=== PATIENT | female | born 1935 | race Caucasian/White ===

== ENCOUNTER 2016-11-15 11:55 | Inpatient (IN) | payer MEDICARE ==
[~2016-11-15] VITALS: Ht 165.1 cm; Wt 87.5 kg
[~2016-11-15 11:55] MED LIST: ACET325T9 PO; AMLO2.5T PO; ASPI-482 PO; ATOR10TA60 PO; BYSTOLIC10 MG PO; CHOL100013 PO; ESCITALOPRAM OX10 MG PO; LOSA50TA6 PO; MELO7.5T29 PO; OXYB5SYR2 PO; PANT40TA5 PO; TRAM50TA PO
--- NOTE | 2016-11-15 12:23 | PHYS DOC ---
Past Medical History Past Medical History: GERD, High Cholesterol, Hypertension, Stroke Past Surgical History: Appendectomy, Hip Replacement, Knee Replacement, Tonsillectomy Additional Past Surgical Histo: bilat knee and hip replacement Alcohol Use: None Drug Use: None Adult General Chief Complaint Chief Complaint: MECHANICAL FALL HPI HPI Patient is a 81 year old female who presents with followed in the apartment lobby. She is came back from [facility] and started feel lightheaded and extension are she was on the ground. She denies any loss of consciousness but is unsure about this. She complains about posterior head pain, neck pain, left hip pain. She states she has generalized body aches everywhere but this is what hurts the most. She is on a fentanyl patch for generalized bodyaches. 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 She states prior to this she felt completely normal but did feel like she got overheated coming from the heat into her building. Review of Systems Review of Systems Constitutional: Denies fever or chills [] Eyes: Denies change in visual acuity, redness, or eye pain [] HENT: Denies nasal congestion or sore throat [] Respiratory: Denies cough or shortness of breath [] Cardiovascular: No additional information not addressed in HPI [] GI: Denies abdominal pain, nausea, vomiting, bloody stools or diarrhea [] : Denies dysuria or hematuria [] Musculoskeletal: Positive for neck and left hip pain Integument: Denies rash or skin lesions [] Neurologic: Denies headache, focal weakness or sensory changes [] Endocrine: Denies polyuria or polydipsia [] Current Medications Current Medications Current Medications Medications (Trade) Dose Ordered Sig/Brice Start Time Stop Time Status Last Admin Dose Admin Fentanyl Citrate (Fentanyl 2ml Vial) 25 mcg PRN Q1HR PRN 11/15/16 15:30 11/16/16 15:29 Hydralazine HCl (Apresoline) 10 mg 1X ONCE 11/15/16 15:30 11/15/16 15:31 Ondansetron HCl (Zofran) 4 mg PRN Q8HRS PRN 11/15/16 15:30 11/16/16 15:29 Allergies Allergies Allergies Coded Allergies Type Severity Reaction Last Updated Verified Penicillins Allergy Severe rash 11/17/13 No Physical Exam Physical Exam Constitutional: Well developed, well nourished, no acute distress, non-toxic appearance. [] HENT: Normocephalic, atraumatic, bilateral external ears normal, oropharynx moist, no oral exudates, nose normal. [] Eyes: PERRLA, EOMI, conjunctiva normal, no discharge. [] Neck: Normal range of motion, no tenderness, supple, no stridor. [] Cardiovascular:Heart rate regular rhythm, no murmur [] Lungs & Thorax: Bilateral breath sounds clear to auscultation, tender to palpation under her left breast, no crepitus appreciated Abdomen: Bowel sounds normal, soft, no tenderness, no masses, no pulsatile masses. [] Skin: Warm, dry, no erythema, no rash. [] Back: No tenderness, no CVA tenderness. [] Extremities: Mild tender to palpation over bilateral hips, no crepitus noted, no cyanosis, no clubbing, ROM intact, no edema. [] Neurologic: Alert and oriented X 3, normal motor function, normal sensory function, no focal deficits noted. [] Psychologic: Affect normal, judgement normal, mood normal. [] Current Patient Data Vital Signs Vital Signs Date Time Temp Pulse Resp B/P (MAP) Pulse Ox O2 Delivery O2 Flow Rate FiO2 11/15/16 14:55 64 20 203/101 (135) Room Air 11/15/16 13:50 97 11/15/16 11:55 97.5 97.5 Lab Values Laboratory Tests Test 11/15/16 12:50 11/15/16 14:35 White Blood Count 5.8 x10^3/uL (4.0-11.0) Red Blood Count 3.96 x10^6/uL (3.50-5.40) Hemoglobin 11.8 g/dL (12.0-15.5) L Hematocrit 35.4 % (36.0-47.0) L Mean Corpuscular Volume 89 fL (79-100) Mean Corpuscular Hemoglobin 30 pg (25-35) Mean Corpuscular Hemoglobin Concent 33 g/dL (31-37) Red Cell Distribution Width 12.6 % (11.5-14.5) Platelet Count 198 x10^3/uL (140-400) Neutrophils (%) (Auto) 77 % (31-73) H Lymphocytes (%) (Auto) 15 % (24-48) L Monocytes (%) (Auto) 6 % (0-9) Eosinophils (%) (Auto) 1 % (0-3) Basophils (%) (Auto) 1 % (0-3) Neutrophils # (Auto) 4.5 x10^3uL (1.8-7.7) Lymphocytes # (Auto) 0.9 x10^3/uL (1.0-4.8) L Monocytes # (Auto) 0.4 x10^3/uL (0.0-1.1) Eosinophils # (Auto) 0.1 x10^3/uL (0.0-0.7) Basophils # (Auto) 0.0 x10^3/uL (0.0-0.2) Prothrombin Time 13.4 SEC (11.7-14.0) Prothrombin Time INR 1.1 (0.8-1.1) Sodium Level 142 mmol/L (136-145) Potassium Level 4.1 mmol/L (3.5-5.1) Chloride Level 104 mmol/L (98-107) Carbon Dioxide Level 29 mmol/L (21-32) Anion Gap 9 (6-14) Blood Urea Nitrogen 14 mg/dL (7-20) Creatinine 1.2 mg/dL (0.6-1.0) H Estimated GFR (Cockcroft-Gault) 43.3 Glucose Level 105 mg/dL (70-99) H Calcium Level 9.4 mg/dL (8.5-10.1) Magnesium Level 2.0 mg/dL (1.8-2.4) Total Bilirubin 0.6 mg/dL (0.2-1.0) Direct Bilirubin 0.1 mg/dL (0.0-0.2) Aspartate Amino Transferase (AST) 18 U/L (15-37) Alanine Aminotransferase (ALT) 11 U/L (14-59) L Alkaline Phosphatase 102 U/L (46-116) Creatine Kinase 92 U/L (26-192) Creatine Kinase MB (Mass) 1.5 ng/mL (0.0-3.6) Creatine Kinase MB Relative Index 1.6 % (0-4) Troponin I Quantitative < 0.017 ng/mL (0.000-0.055) EP-Iyi-C-Type Natriuretic Peptide 700 pg/mL (0-449) H Total Protein 6.3 g/dL (6.4-8.2) L Albumin 3.7 g/dL (3.4-5.0) Thyroid Stimulating Hormone (TSH) 0.101 uIU/mL (0.358-3.74) L Urine Color Yellow Urine Clarity Clear Urine pH 6.5 Urine Specific [place] 1.010 Urine Protein Negative mg/dL (NEG-TRACE) Urine Glucose (UA) Negative mg/dL (NEG) Urine Ketones (Stick) Negative mg/dL (NEG) Urine Blood Negative (NEG) Urine Nitrite Positive (NEG) Urine Bilirubin Negative (NEG) Urine Urobilinogen Dipstick 0.2 mg/dL (0.2 mg/dL) Urine Leukocyte Esterase Small (NEG) Urine RBC 0 /HPF (0-2) Urine WBC 5-10 /HPF (0-4) Urine Squamous Epithelial Cells Occ /LPF Urine Transitional Epithelial Cells Occ /LPF Urine Bacteria Many /HPF (0-FEW) Laboratory Tests 11/15/16 12:50 Laboratory Tests 11/15/16 12:50 EKG EKG EKG shows sinus rhythm rate [address] elevations appreciated or T- wave inversions, left axis deviation, QTC 408 ms, as interpreted by me. Radiology/Procedures Radiology/Procedures [facility] [address] [place], [place] [id number] IMAGING REPORT Signed PATIENT: ATILIO DAY ACCOUNT: [id number] : 1935 LOCATION: ER AGE: 81 SEX: F EXAM STATUS: PRE ER ORD. PHYSICIAN: REYNA WANG MD REASON: presyncope, fall with headache and neck pain PROCEDURE: CT HEAD AND CERVICAL SPINE WO Indication near syncope . Fall. Head injury. Neck pain. Noncontrast images of the head were obtained. Cervical spine was also evaluated. Images of the cervical spine were reformatted in the coronal and sagittal planes. Note is made of a previous examination of the head 01/31/2016. CT head: Findings No acute calvarial finding is seen. The visualized paranasal sinuses appear unremarkable. There is no subdural or epidural hematoma. There is some underlying atrophy. No mass or midline shift is seen. Acute finding is not apparent. There is no evidence of hemorrhage. CT cervical spine: Findings. The lung apices are clear. A significant soft tissue finding in the neck is not seen. There are probable thyroid nodules. These are likely incidental but could be further evaluated with ultrasound if clinically warranted. Review of axial images demonstrates degenerative changes. Uncovertebral degenerative change is seen as well as facet degenerative change. Best demonstrated on the reformatted images is some disc space narrowing at C5-6 and C6-7. Acute finding is not seen. IMPRESSION: Degenerative changes in the cervical spine. No acute finding seen. Chronic changes in the head. No acute finding seen PQRS Compliance Statement: One or more of the following individualized dose reduction techniques were utilized for this examination: 1. Automated exposure control 2. Adjustment of the mA and/or kV according to patient size 3. Use of iterative reconstruction technique DICTATED and SIGNED BY: TIFFANY VILA MD DATE: 11/15/16 1317 CC: REYNA WANG MD; AISHWARYA TAVERAS MD ~ [place] [id number] IMAGING REPORT Signed PATIENT: ATILIO DAY ACCOUNT: [id number] : 1935 LOCATION: ER AGE: 81 SEX: F EXAM STATUS: REG ER ORD. PHYSICIAN: REYNA WANG MD REASON: presyncope PROCEDURE: PORTABLE CHEST 1V Indication syncope. Pain in the left ribs. A single view of the chest was obtained and is compared to an examination 11/17/2013. Slightly tortuous thoracic aorta is noted. An acute parenchymal infiltrate is not seen. Significant pleural fluid is not present. There is no pneumothorax. There are degenerative changes around the left shoulder. IMPRESSION: No acute finding apparent in the chest DICTATED and SIGNED BY: TIFFANY VILA MD DATE: 11/15/16 1340 CC: REYNA WANG MD; AISHWARYA TAVERAS MD ~ [address] [id number] IMAGING REPORT Signed PATIENT: ATILIO DAY ACCOUNT: [id number] : 1935 LOCATION: ER AGE: 81 SEX: F EXAM [id number] STATUS: REG ER ORD. PHYSICIAN: REYNA WANG MD REASON: hip pain PROCEDURE: HIP LEFT 2 VIEW; HIP RIGHT 2V WITH PELVIS EXAM: 1. Frontal pelvis with 2V right hip. 2. Left hip 2 views. HISTORY: Syncope, bilateral hip pain. COMPARISON: 08/03/2015. FINDINGS: There are changes of bilateral total hip arthroplasty. The right acetabular component is 6 x 2 screws and the femoral component is uncemented. The left acetabular component is fixed by 3 screws. The femoral component is fixed by cerclage wires. There is some heterotopic ossification posterior to the proximal metaphysis. This is stable. No, dictation is appreciated bilaterally. Osteopenia appears moderate. No pelvic fractures seen. Sacroiliac osteoarthritis is mild on the left. There is moderate to severe lower lumbar degenerative disc disease. IMPRESSION: 1. Bilateral total hip arthroplasties in expected alignment. 2. Moderate osteopenia. 3. Mild left sacroiliac osteoarthritis. 4. Moderate to severe lower lumbar degenerative disc disease. DICTATED and SIGNED BY: CHRISTI MICHEL MD DATE: 11/15/16 1401 CC: REYNA WANG MD; AISHWARYA TAVERAS MD ~ Impressions: Left rib contusions Left hip pain Accelerated hypertension Presyncope Course & Med Decision Making Course & Med Decision Making Pertinent Labs and Imaging studies reviewed. (See chart for details) CT head neck chest x-ray bilateral hip x-rays negative. Patient blood pressures to 225 systolic, IV hydralazine ordered. Patient's being admitted for presyncopal episode. Family is agreeable plan patient's in stable condition at this time. Interim orders have been written. Dragon Disclaimer Dragon Disclaimer This electronic medical record was generated, in whole or in part, using a voice recognition dictation system. Departure Departure Impression: Primary Impression: Syncope Disposition: ADMITTED INPATIENT Admitting Physician: Lurdes Lozoya Condition: IMPROVED Referrals: AISHWARYA TAVERAS MD (PCP) Problem Qualifiers Primary Impression: Syncope Syncope type: unspecified Qualified Codes: R55 - Syncope and collapse REYNA WANG MD Nov 15, 2016 12:22
[2016-11-15 12:58] LABS: BASO % 1 % (0-3); EOS % 1 % (0-3); HEMATOCRIT 35.4 % (36.0-47.0); HEMOGLOBIN 11.8 g/dL (12.0-15.5); LYMPH # 0.9 x10^3/uL (1.0-4.8); LYMPH % 15 % (24-48); MEAN CORPUSCULAR HEMOGLOBIN 30 pg (25-35); MEAN CORPUSCULAR HGB CONC 33 g/dL (31-37); MEAN CORPUSCULAR VOLUME 89 fL (79-100); MONO % 6 % (0-9); NEUT % 77 % (31-73); PLATELET COUNT 198 x10^3/uL (140-400); RED BLOOD COUNT 3.96 x10^6/uL (3.50-5.40); RED CELL DISTRIBUTION WIDTH 12.6 % (11.5-14.5); WHITE BLOOD COUNT 5.8 x10^3/uL (4.0-11.0)
[2016-11-15 13:08] LABS: INR 1.1 (0.8-1.1); PROTHROMBIN TIME PATIENT 13.4 SEC (11.7-14.0)
[2016-11-15 13:11] LABS: CALCIUM 9.4 mg/dL (8.5-10.1); CREATININE 1.2 mg/dL (0.6-1.0); GFR 43.3; POTASSIUM 4.1 mmol/L (3.5-5.1)
--- NOTE | 2016-11-15 13:15 | EKG ---
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
[2016-11-15 13:20] LABS: ALBUMIN 3.7 g/dL (3.4-5.0); DIRECT BILIRUBIN 0.1 mg/dL (0.0-0.2); TOTAL BILIRUBIN 0.6 mg/dL (0.2-1.0); TOTAL PROTEIN 6.3 g/dL (6.4-8.2)
[2016-11-15 13:25] LABS: CKMB MASS 1.5 ng/mL (0.0-3.6)
--- NOTE | 2016-11-15 13:29 | RAD ---
Indication near syncope . Fall. Head injury. Neck pain. Noncontrast images of the head were obtained. Cervical spine was also evaluated. Images of the cervical spine were reformatted in the coronal and sagittal planes. Note is made of a previous examination of the head 01/31/2016. CT head: Findings No acute calvarial finding is seen. The visualized paranasal sinuses appear unremarkable. There is no subdural or epidural hematoma. There is some underlying atrophy. No mass or midline shift is seen. Acute finding is not apparent. There is no evidence of hemorrhage. CT cervical spine: Findings. The lung apices are clear. A significant soft tissue finding in the neck is not seen. There are probable thyroid nodules. These are likely incidental but could be further evaluated with ultrasound if clinically warranted. Review of axial images demonstrates degenerative changes. Uncovertebral degenerative change is seen as well as facet degenerative change. Best demonstrated on the reformatted images is some disc space narrowing at C5-6 and C6-7. Acute finding is not seen. IMPRESSION: Degenerative changes in the cervical spine. No acute finding seen. Chronic changes in the head. No acute finding seen PQRS Compliance Statement: One or more of the following individualized dose reduction techniques were utilized for this examination: 1. Automated exposure control 2. Adjustment of the mA and/or kV according to patient size 3. Use of iterative reconstruction technique
[2016-11-15] MEDS: fentaNYL PF VIAL 100 MCG/2 ML VIAL IV PRN ×3 (13:50→20:53)
--- NOTE | 2016-11-15 13:55 | RAD ---
Indication syncope. Pain in the left ribs. A single view of the chest was obtained and is compared to an examination 11/17/2013. Slightly tortuous thoracic aorta is noted. An acute parenchymal infiltrate is not seen. Significant pleural fluid is not present. There is no pneumothorax. There are degenerative changes around the left shoulder. IMPRESSION: No acute finding apparent in the chest
--- NOTE | 2016-11-15 14:07 | RAD ---
EXAM: 1. Frontal pelvis with 2V right hip. 2. Left hip 2 views. HISTORY: Syncope, bilateral hip pain. COMPARISON: 08/03/2015. FINDINGS: There are changes of bilateral total hip arthroplasty. The right acetabular component is 6 x 2 screws and the femoral component is uncemented. The left acetabular component is fixed by 3 screws. The femoral component is fixed by cerclage wires. There is some heterotopic ossification posterior to the proximal metaphysis. This is stable. No, dictation is appreciated bilaterally. Osteopenia appears moderate. No pelvic fractures seen. Sacroiliac osteoarthritis is mild on the left. There is moderate to severe lower lumbar degenerative disc disease. IMPRESSION: 1. Bilateral total hip arthroplasties in expected alignment. 2. Moderate osteopenia. 3. Mild left sacroiliac osteoarthritis. 4. Moderate to severe lower lumbar degenerative disc disease.
[2016-11-15 14:46] LABS: BILIRUBIN,URINE NEGATIVE (NEG); GLUCOSE,URINE NEGATIVE (NEG); NITRITE,URINE POSITIVE (NEG); PH,URINE 6.5; PROTEIN,URINE NEGATIVE (NEG-TRACE); UROBILINOGEN,URINE 0.2 mg/dL (0.2 mg/dL)
[2016-11-15 14:56] LABS: BACTERIA,URINE MANY /HPF (0-FEW); RBC,URINE 0 /HPF (0-2); SQUAMOUS EPITHELIAL CELL,UR OCC /LPF
[2016-11-15] MEDS ORDERED: fentaNYL PF VIAL 100 MCG/2 ML VIAL IV PRN (15:30)
[2016-11-15] MEDS ORDERED: hydrALAZINE 20 MG/ML VIAL. IVP ONE (15:30)
[2016-11-15] MEDS ORDERED: ONDANSETRON PF 4 MG/2 ML VIAL. IV PRN (15:30)
--- NOTE | 2016-11-15 16:09 | PDOC1 ---
History and Physical Date of Admission Date of Admission DATE: 11/15/16 TIME: 16:02 Identification/Chief Complaint Chief Complaint fall, pain Problems: Source Source: Chart review, Patient History of Present Illness History of Present Illness Ms. Shelton is a 81 year old female admit after a fall. She was lightheaded does not remember much, denies loss of consciousness, but may be deflecting the question,. She complains about rib pain on left, neck pain, left hip pain. Takes fentanyl patch at baseline family is worried that EMS warned then about "heart blockage" maybe noticing wide QRS she has had mult prior stress tests, never a cardiac cath feels OK now, seems a little confused Past Medical History Cardiovascular: HTN, Hyperlipidemia GI: GERD Psych: Depression Musculoskeletal: low back pain Endocrine: No pertinent hx Dermatology: No pertinent hx Past Surgical History Past Surgical History: Appendectomy, Total hip replacement, Total knee replacement Family History Family History: No Significant, Other Social History Smoke: No ALCOHOL: none Drugs: None Current Problem List Problem List Problems Medical Problems: (1) Syncope Status: Acute Problems: Current Medications Current Medications Current Medications Fentanyl Citrate (Fentanyl 2ml Vial) 25 mcg PRN Q15MIN PRN IV PAIN GREATER THAN 3/10 Last administered on 11/15/16t 13:50; Start 11/15/16 at 13:45; Stop at 13:44 Ondansetron HCl (Zofran) 4 mg PRN Q8HRS PRN IV NAUSEA/VOMITING; Start 11/15/16 at 15:30; Stop 11/16/16 at 15:29 Fentanyl Citrate (Fentanyl 2ml Vial) 25 mcg PRN Q1HR PRN IV PAIN; Start at 15:30; Stop 11/16/16 at 15:29 Hydralazine HCl (Apresoline) 10 mg 1X ONCE IVP Last administered on 11/15/16t 15:27; Start 11/15/16 at 15:30; Stop 11/15/16 at 15:31; Status DC Active Scripts Active Reported Tylenol (Acetaminophen) 325 Mg Tablet 1,000 Mg PO Escitalopram Oxalate 10 Mg Tablet 1 Tab PO DAILY Amlodipine Besylate 2.5 Mg Tablet 2.5 Mg PO HS Losartan Potassium 50 Mg Tablet 50 Mg PO 1X Vitamin D (Cholecalciferol (Vitamin D3)) 1,000 Unit Capsule 1,000 Unit PO Aspir 81 (Aspirin) 81 Mg Tablet.dr 81 Mg PO Pantoprazole Sodium 40 Mg Tablet.dr 40 Mg PO 1X Meloxicam 7.5 Mg Tablet 7.5 Mg PO DAILY Bystolic (Nebivolol) 10 Mg Tablet 10 Mg PO Allergies Allergies: Coded Allergies: Penicillins (Unverified Allergy, Severe, rash, 11/17/13) fosphenytoin (Verified Allergy, Intermediate, 11/15/16) ROS General: YES: Fatigue, No: Chills, Night Sweats, Appetite, Other PSYCHOLOGICAL ROS: No: Anxiety, Behavioral Disorder, Concentration difficultie , Decreased libido, Depression, Disorientation, Hallucinations, Hostility, Irritablity, Memory difficulties, Mood Swings, Obsessive thoughts, Physical abuse, Sexual abuse, Sleep disturbances, Suicidal ideation, Other Eyes: No Blurry vision, No Decreased vision, No Double vision, No Dry eyes, No Excessive tearing, No Eye Pain, No Itchy Eyes, No Loss of vision, No Photophobia , No Scotomata, No Uses contacts, No Uses glasses, No Other HEENT: No: Heacaches, Visual Changes, Hearing change, Nasal congestion, Nasal discharge, Oral lesions, Sinus pain, Sore Throat, Epistaxis, Sneezing, Snoring, Tinnitus, Vertigo, Vocal changes, Other Hematological and Lymphatic: No: Bleeding Problems, Blood Clots, Blood Transfusions, Brusing, Night Sweats, Pallor, Swollen Lymph Nodes, Other Cardiovascular: No Chest Pain, No Palpitations, No Orthopnea, No Paroxysmal Noc. Dyspnea, No Edema, No Lt Headedness, No Other Gastrointestinal: No Vomiting, No Abdominal Pain, No Diarrhea, No Constipation , No Melena, No Hematochezia, No Other Genitourinary: No Dysuria, No Frequency, No Incontinence, No Hematuria, No Retention, No Discharge, No Urgency, No Pain, No Flank Pain, No Other, No , No , No , No , No , No , No Musculoskeletal: Yes Joint Pain, Yes Joint Stiffness, Yes Muscle Pain Neurological: No Behavorial Changes, No Bowel/Bladder ControlChng, No Confusion , No Dizziness, No Gait Disturbance, No Headaches, No Impaired Coord/balance, No Memory Loss, No Numbness/Tingling, No Seizures, No Speech Problems, No Tremors, No Visual Changes, No Weakness, No Other Skin: Yes Dry Skin, No Eczema, No Hair Changes, No Lumps, No Mole Changes, No Mottling, No Nail Changes, No Pruritus, No Rash, No Skin Lesion Changes, No Other, No Acne Physical Exam General: Alert, Oriented X3, Cooperative, No acute distress HEENT: Atraumatic, EOMI, Other (op appears dry) Lungs: Clear to auscultation, Normal air movement Heart: no gallops, no murmurs Extremities: No edema Skin: No breakdown, No significant lesion Vitals Vitals Vital Signs Date Time Temp Pulse Resp B/P (MAP) Pulse Ox O2 Delivery O2 Flow Rate FiO2 11/15/16 15:27 62 203/97 11/15/16 14:55 20 Room Air 11/15/16 13:50 97 11/15/16 11:55 97.5 97.5 Labs Labs Laboratory Tests Test 11/15/16 12:50 11/15/16 14:35 White Blood Count 5.8 x10^3/uL (4.0-11.0) Red Blood Count 3.96 x10^6/uL (3.50-5.40) Hemoglobin 11.8 g/dL (12.0-15.5) Hematocrit 35.4 % (36.0-47.0) Mean Corpuscular Volume 89 fL (79-100) Mean Corpuscular Hemoglobin 30 pg (25-35) Mean Corpuscular Hemoglobin Concent 33 g/dL (31-37) Red Cell Distribution Width 12.6 % (11.5-14.5) Platelet Count 198 x10^3/uL (140-400) Neutrophils (%) (Auto) 77 % (31-73) Lymphocytes (%) (Auto) 15 % (24-48) Monocytes (%) (Auto) 6 % (0-9) Eosinophils (%) (Auto) 1 % (0-3) Basophils (%) (Auto) 1 % (0-3) Neutrophils # (Auto) 4.5 x10^3uL (1.8-7.7) Lymphocytes # (Auto) 0.9 x10^3/uL (1.0-4.8) Monocytes # (Auto) 0.4 x10^3/uL (0.0-1.1) Eosinophils # (Auto) 0.1 x10^3/uL (0.0-0.7) Basophils # (Auto) 0.0 x10^3/uL (0.0-0.2) Prothrombin Time 13.4 SEC (11.7-14.0) Prothromb Time International Ratio 1.1 (0.8-1.1) Sodium Level 142 mmol/L (136-145) Potassium Level 4.1 mmol/L (3.5-5.1) Chloride Level 104 mmol/L (98-107) Carbon Dioxide Level 29 mmol/L (21-32) Anion Gap 9 (6-14) Blood Urea Nitrogen 14 mg/dL (7-20) Creatinine 1.2 mg/dL (0.6-1.0) Estimated GFR (Cockcroft-Gault) 43.3 Glucose Level 105 mg/dL (70-99) Calcium Level 9.4 mg/dL (8.5-10.1) Magnesium Level 2.0 mg/dL (1.8-2.4) Total Bilirubin 0.6 mg/dL (0.2-1.0) Direct Bilirubin 0.1 mg/dL (0.0-0.2) Aspartate Amino Transf (AST/SGOT) 18 U/L (15-37) Alanine Aminotransferase (ALT/SGPT) 11 U/L (14-59) Alkaline Phosphatase 102 U/L (46-116) Creatine Kinase 92 U/L (26-192) Creatine Kinase MB (Mass) 1.5 ng/mL (0.0-3.6) Creatine Kinase MB Relative Index 1.6 % (0-4) Troponin I Quantitative < 0.017 ng/mL (0.000-0.055) LI-Irr-E-Type Natriuretic Peptide 700 pg/mL (0-449) Total Protein 6.3 g/dL (6.4-8.2) Albumin 3.7 g/dL (3.4-5.0) Thyroid Stimulating Hormone (TSH) 0.101 uIU/mL (0.358-3.74) Urine Color Yellow Urine Clarity Clear Urine pH 6.5 Urine Specific [place] 1.010 Urine Protein Negative mg/dL (NEG-TRACE) Urine Glucose (UA) Negative mg/dL (NEG) Urine Ketones (Stick) Negative mg/dL (NEG) Urine Blood Negative (NEG) Urine Nitrite Positive (NEG) Urine Bilirubin Negative (NEG) Urine Urobilinogen Dipstick 0.2 mg/dL (0.2 mg/dL) Urine Leukocyte Esterase Small (NEG) Urine RBC 0 /HPF (0-2) Urine WBC 5-10 /HPF (0-4) Urine Squamous Epithelial Cells Occ /LPF Urine Transitional Epithelial Cells Occ /LPF Urine Bacteria Many /HPF (0-FEW) Laboratory Tests Test 11/15/16 12:50 11/15/16 14:35 White Blood Count 5.8 x10^3/uL (4.0-11.0) Red Blood Count 3.96 x10^6/uL (3.50-5.40) Hemoglobin 11.8 g/dL (12.0-15.5) Hematocrit 35.4 % (36.0-47.0) Mean Corpuscular Volume 89 fL (79-100) Mean Corpuscular Hemoglobin 30 pg (25-35) Mean Corpuscular Hemoglobin Concent 33 g/dL (31-37) Red Cell Distribution Width 12.6 % (11.5-14.5) Platelet Count 198 x10^3/uL (140-400) Neutrophils (%) (Auto) 77 % (31-73) Lymphocytes (%) (Auto) 15 % (24-48) Monocytes (%) (Auto) 6 % (0-9) Eosinophils (%) (Auto) 1 % (0-3) Basophils (%) (Auto) 1 % (0-3) Neutrophils # (Auto) 4.5 x10^3uL (1.8-7.7) Lymphocytes # (Auto) 0.9 x10^3/uL (1.0-4.8) Monocytes # (Auto) 0.4 x10^3/uL (0.0-1.1) Eosinophils # (Auto) 0.1 x10^3/uL (0.0-0.7) Basophils # (Auto) 0.0 x10^3/uL (0.0-0.2) Prothrombin Time 13.4 SEC (11.7-14.0) Prothromb Time International Ratio 1.1 (0.8-1.1) Sodium Level 142 mmol/L (136-145) Potassium Level 4.1 mmol/L (3.5-5.1) Chloride Level 104 mmol/L (98-107) Carbon Dioxide Level 29 mmol/L (21-32) Anion Gap 9 (6-14) Blood Urea Nitrogen 14 mg/dL (7-20) Creatinine 1.2 mg/dL (0.6-1.0) Estimated GFR (Cockcroft-Gault) 43.3 Glucose Level 105 mg/dL (70-99) Calcium Level 9.4 mg/dL (8.5-10.1) Magnesium Level 2.0 mg/dL (1.8-2.4) Total Bilirubin 0.6 mg/dL (0.2-1.0) Direct Bilirubin 0.1 mg/dL (0.0-0.2) Aspartate Amino Transf (AST/SGOT) 18 U/L (15-37) Alanine Aminotransferase (ALT/SGPT) 11 U/L (14-59) Alkaline Phosphatase 102 U/L (46-116) Creatine Kinase 92 U/L (26-192) Creatine Kinase MB (Mass) 1.5 ng/mL (0.0-3.6) Creatine Kinase MB Relative Index 1.6 % (0-4) Troponin I Quantitative < 0.017 ng/mL (0.000-0.055) JT-Tvb-O-Type Natriuretic Peptide 700 pg/mL (0-449) Total Protein 6.3 g/dL (6.4-8.2) Albumin 3.7 g/dL (3.4-5.0) Thyroid Stimulating Hormone (TSH) 0.101 uIU/mL (0.358-3.74) Urine Color Yellow Urine Clarity Clear Urine pH 6.5 Urine Specific [place] 1.010 Urine Protein Negative mg/dL (NEG-TRACE) Urine Glucose (UA) Negative mg/dL (NEG) Urine Ketones (Stick) Negative mg/dL (NEG) Urine Blood Negative (NEG) Urine Nitrite Positive (NEG) Urine Bilirubin Negative (NEG) Urine Urobilinogen Dipstick 0.2 mg/dL (0.2 mg/dL) Urine Leukocyte Esterase Small (NEG) Urine RBC 0 /HPF (0-2) Urine WBC 5-10 /HPF (0-4) Urine Squamous Epithelial Cells Occ /LPF Urine Transitional Epithelial Cells Occ /LPF Urine Bacteria Many /HPF (0-FEW) VTE Prophylaxis Ordered VTE Prophylaxis Devices: No VTE Pharmacological Prophylaxi: Yes Assessment/Plan Assessment/Plan fall syncope vs. presyncope consult CV UTI dehydration, on CKD 3 some weakness obesity BMI 32 CAROLINA SANCHEZ MD Nov 15, 2016 16:09
--- NOTE | 2016-11-15 16:15 | ACF ---
Admit Criteria Forms Admit Criteria Forms Admit Criteria Forms HYPERTENSION Clinical Indications for Admission to Inpatient Care ( Place "X" for any and all applicable criteria): Admission is indicated for 1 or more of the following(1)(2)(3)(4)(5)(6)(7)(8)(9) (10): [ ]I. Hypertensive emergency, with evidence of acute and progressing target organ disease as indicated by 1 or more of the following: [ ]a) Hypertensive encephalopathy (eg, confusion, altered mental status) [ ]b) Cerebral infarction [ ]c) Intracranial hemorrhage [ ]d) Myocardial ischemia or infarction [ ]e) Heart failure (eg. Pulmonary edema) [ ]f) Aortic dissection [ ]g) Increased creatinine (new) with reduction of more than 50% in estimated glomerular filtration rate from baseline [ ]h) Seizure [ ]i) Papilledema [ ]j) Retinal hemorrhage [ ]k) Microangiopathic hemolytic anemia [ ]l) Other significant finding secondary to hypertension [ ]II. Adrenergic or sympathomimetic crisis (eg, severe hypertension due to pheochromocytoma crisis, cocaine or amphetamine intoxication, or clonidine withdrawal) [X ]III. Severe hypertension (SBP greater than 180 mmHg or DBP greater than 110 mmHg or greater than the 95th percentile for age, gender, and height in pediatric patients) that cannot be controlled (eg, to SBP less than 160 mmHg and DBP less than 100 mmHg in adults) by treatment with oral medication in emergency department or observation care Extended stay beyond goal length of stay may be needed for(11)(12)(13): [ ]a) Persistent hypertensive encephalopathy [ ]b) Continuation of pulmonary edema [ ]c) Recurring or persistent severe hypertension [ ]d) Target organ damage (eg, angina, stroke, aortic dissection) The original [employer] content created by [employer] has been revised. The portions of the content which have been revised are identified through the use of italic text, and [employer] has neither reviewed nor approved the modified material. All other unmodified content is copyright [employer]. Please see references footnoted in the original [employer] edition 2014 EMELY PANTOJA Nov 15, 2016 16:15
[2016-11-15] MEDS ORDERED: amLODIPine BESYLATE 5 MG TABLET PO ONE (16:30)
[2016-11-15 17:30] VITALS: BP 164/72
[2016-11-15] MEDS ORDERED: CYAN10005 PO (17:37)
[2016-11-15] MEDS ORDERED: ATOR20TA58 PO (17:37)
[2016-11-15] MEDS ORDERED: FENT1PAT15 TP (17:37)
[2016-11-15] MEDS ORDERED: CLOP75TA PO (17:37)
[2016-11-15] MEDS ORDERED: DIPH50CA PO (18:32)
[2016-11-15 19:00] VITALS: BP 120/48
[2016-11-15] MEDS: ENOXAPARIN 40 MG/0.4 ML SYRINGE. SQ SCH (20:51)
[2016-11-15] MEDS: ACETAMINOPHEN 325 MG TABLET. PO SCH (20:51)
[2016-11-15] MEDS ORDERED: amLODIPine BESYLATE 2.5 MG TABLET PO SCH (21:00)
[2016-11-15 22:50] VITALS: BP 146/67
[2016-11-15 22:51] VITALS: BP 139/76
[2016-11-15 22:52] VITALS: BP 107/62
[2016-11-15] MEDS: diphenhydrAMINE HCL 25 MG CAPSULE PO PRN (23:07)
[2016-11-16 03:00] VITALS: BP 169/72
[2016-11-16 05:22] LABS: BASO % 1 % (0-3); EOS % 1 % (0-3); HEMATOCRIT 35.8 % (36.0-47.0); HEMOGLOBIN 11.8 g/dL (12.0-15.5); LYMPH # 1.7 x10^3/uL (1.0-4.8); LYMPH % 20 % (24-48); MEAN CORPUSCULAR HEMOGLOBIN 30 pg (25-35); MEAN CORPUSCULAR HGB CONC 33 g/dL (31-37); MEAN CORPUSCULAR VOLUME 90 fL (79-100); MONO % 7 % (0-9); NEUT % 72 % (31-73); PLATELET COUNT 239 x10^3/uL (140-400); RED BLOOD COUNT 3.99 x10^6/uL (3.50-5.40); WHITE BLOOD COUNT 8.6 x10^3/uL (4.0-11.0)
[2016-11-16 05:43] LABS: CHOLESTEROL/HDL RATIO 2.6
[2016-11-16 05:44] LABS: CALCIUM 8.9 mg/dL (8.5-10.1); CREATININE 1.3 mg/dL (0.6-1.0); GFR 39.5; POTASSIUM 3.8 mmol/L (3.5-5.1)
[2016-11-16] MEDS: ACETAMINOPHEN 325 MG TABLET. PO SCH ×3 (06:08→21:00)
[2016-11-16] MEDS: fentaNYL PF VIAL 100 MCG/2 ML VIAL IV PRN (06:10)
[2016-11-16 07:00] VITALS: BP 172/61
[2016-11-16] MEDS: LOSARTAN POTASSIUM 50 MG TABLET. PO SCH (08:42)
[2016-11-16] MEDS: ASPIRIN ENTERIC COATED 81 MG TABLET.DR. PO SCH (08:42)
[2016-11-16] MEDS: MELOXICAM 7.5 MG TABLET PO SCH (08:43)
[2016-11-16] MEDS: PANTOPRAZOLE 40 MG TABLET.DR. PO SCH (08:44)
[2016-11-16 10:49] VITALS: BP_SYST 114; BP_SYST 149; BP_SYST 155; BP_DIAS 59; BP_DIAS 61; BP_DIAS 77
--- NOTE | 2016-11-16 11:09 | PDOC ---
PROGRESS NOTES Chief Complaint Chief Complaint fall syncope UTI dehydration, on CKD 3 some weakness and debility obesity BMI 32 History of Present Illness History of Present Illness walk with cane, start PT and OT rocephin for UTI, cx pending on tele, 24 hours would go until after 8pm tonight, plan DC in AM if oK Vitals Vitals Vital Signs Date Time Temp Pulse Resp B/P (MAP) Pulse Ox O2 Delivery O2 Flow Rate FiO2 11/16/16 10:49 96.4 71 16 155/59 (91) 96 Room Air 96.4 149/77 (101) 114/61 (78) Physical Exam General: Alert, Oriented X3, Cooperative, No acute distress Heart: Regular rate, No murmurs Lungs: Wheezing Abdomen: No tenderness Extremities: No edema Skin: No breakdown, No significant lesion Labs LABS Laboratory Tests Test 11/15/16 12:50 11/15/16 14:35 11/15/16 21:30 11/16/16 04:45 White Blood Count 5.8 x10^3/uL (4.0-11.0) 8.6 x10^3/uL (4.0-11.0) Red Blood Count 3.96 x10^6/uL (3.50-5.40) 3.99 x10^6/uL (3.50-5.40) Hemoglobin 11.8 g/dL (12.0-15.5) 11.8 g/dL (12.0-15.5) Hematocrit 35.4 % (36.0-47.0) 35.8 % (36.0-47.0) Mean Corpuscular Volume 89 fL (79-100) 90 fL (79-100) Mean Corpuscular Hemoglobin 30 pg (25-35) 30 pg (25-35) Mean Corpuscular Hemoglobin Concent 33 g/dL (31-37) 33 g/dL (31-37) Red Cell Distribution Width 12.6 % (11.5-14.5) 13.0 % (11.5-14.5) Platelet Count 198 x10^3/uL (140-400) 239 x10^3/uL (140-400) Neutrophils (%) (Auto) 77 % (31-73) 72 % (31-73) Lymphocytes (%) (Auto) 15 % (24-48) 20 % (24-48) Monocytes (%) (Auto) 6 % (0-9) 7 % (0-9) Eosinophils (%) (Auto) 1 % (0-3) 1 % (0-3) Basophils (%) (Auto) 1 % (0-3) 1 % (0-3) Neutrophils # (Auto) 4.5 x10^3uL (1.8-7.7) 6.1 x10^3uL (1.8-7.7) Lymphocytes # (Auto) 0.9 x10^3/uL (1.0-4.8) 1.7 x10^3/uL (1.0-4.8) Monocytes # (Auto) 0.4 x10^3/uL (0.0-1.1) 0.6 x10^3/uL (0.0-1.1) Eosinophils # (Auto) 0.1 x10^3/uL (0.0-0.7) 0.1 x10^3/uL (0.0-0.7) Basophils # (Auto) 0.0 x10^3/uL (0.0-0.2) 0.0 x10^3/uL (0.0-0.2) Prothrombin Time 13.4 SEC (11.7-14.0) Prothromb Time International Ratio 1.1 (0.8-1.1) Sodium Level 142 mmol/L (136-145) 142 mmol/L (136-145) Potassium Level 4.1 mmol/L (3.5-5.1) 3.8 mmol/L (3.5-5.1) Chloride Level 104 mmol/L (98-107) 103 mmol/L (98-107) Carbon Dioxide Level 29 mmol/L (21-32) 28 mmol/L (21-32) Anion Gap 9 (6-14) 11 (6-14) Blood Urea Nitrogen 14 mg/dL (7-20) 19 mg/dL (7-20) Creatinine 1.2 mg/dL (0.6-1.0) 1.3 mg/dL (0.6-1.0) Estimated GFR (Cockcroft-Gault) 43.3 39.5 Glucose Level 105 mg/dL (70-99) 64 mg/dL (70-99) Calcium Level 9.4 mg/dL (8.5-10.1) 8.9 mg/dL (8.5-10.1) Magnesium Level 2.0 mg/dL (1.8-2.4) Total Bilirubin 0.6 mg/dL (0.2-1.0) Direct Bilirubin 0.1 mg/dL (0.0-0.2) Aspartate Amino Transf (AST/SGOT) 18 U/L (15-37) Alanine Aminotransferase (ALT/SGPT) 11 U/L (14-59) Alkaline Phosphatase 102 U/L (46-116) Creatine Kinase 92 U/L (26-192) Creatine Kinase MB (Mass) 1.5 ng/mL (0.0-3.6) Creatine Kinase MB Relative Index 1.6 % (0-4) Troponin I Quantitative < 0.017 ng/mL (0.000-0.055) < 0.017 ng/mL (0.000-0.055) < 0.017 ng/mL (0.000-0.055) RV-[id number]-Type Natriuretic Peptide 700 pg/mL (0-449) Total Protein 6.3 g/dL (6.4-8.2) Albumin 3.7 g/dL (3.4-5.0) Thyroid Stimulating Hormone (TSH) 0.101 uIU/mL (0.358-3.74) Urine Color Yellow Urine Clarity Clear Urine pH 6.5 Urine Specific [place] 1.010 Urine Protein Negative mg/dL (NEG-TRACE) Urine Glucose (UA) Negative mg/dL (NEG) Urine Ketones (Stick) Negative mg/dL (NEG) Urine Blood Negative (NEG) Urine Nitrite Positive (NEG) Urine Bilirubin Negative (NEG) Urine Urobilinogen Dipstick 0.2 mg/dL (0.2 mg/dL) Urine Leukocyte Esterase Small (NEG) Urine RBC 0 /HPF (0-2) Urine WBC 5-10 /HPF (0-4) Urine Squamous Epithelial Cells Occ /LPF Urine Transitional Epithelial Cells Occ /LPF Urine Bacteria Many /HPF (0-FEW) Triglycerides Level 110 mg/dL (0-150) Cholesterol Level 148 mg/dL (0-200) LDL Cholesterol, Calculated 70 mg/dL (0-100) VLDL Cholesterol, Calculated 22 mg/dL (0-40) Non-HDL Cholesterol Calculated 92 mg/dL (0-129) HDL Cholesterol 56 mg/dL (40-60) Cholesterol/HDL Ratio 2.6 Review of Systems Review of Systems feels better no complaint Assessment and Plan Assessmemt and Plan Problems Medical Problems: (1) Syncope Status: Acute Problems: Comment Review of Relevant I have reviewed the following items britt (where applicable) has been applied. Labs Laboratory Tests Test 11/15/16 12:50 11/15/16 14:35 11/15/16 21:30 11/16/16 04:45 White Blood Count 5.8 x10^3/uL (4.0-11.0) 8.6 x10^3/uL (4.0-11.0) Red Blood Count 3.96 x10^6/uL (3.50-5.40) 3.99 x10^6/uL (3.50-5.40) Hemoglobin 11.8 g/dL (12.0-15.5) 11.8 g/dL (12.0-15.5) Hematocrit 35.4 % (36.0-47.0) 35.8 % (36.0-47.0) Mean Corpuscular Volume 89 fL (79-100) 90 fL (79-100) Mean Corpuscular Hemoglobin 30 pg (25-35) 30 pg (25-35) Mean Corpuscular Hemoglobin Concent 33 g/dL (31-37) 33 g/dL (31-37) Red Cell Distribution Width 12.6 % (11.5-14.5) 13.0 % (11.5-14.5) Platelet Count 198 x10^3/uL (140-400) 239 x10^3/uL (140-400) Neutrophils (%) (Auto) 77 % (31-73) 72 % (31-73) Lymphocytes (%) (Auto) 15 % (24-48) 20 % (24-48) Monocytes (%) (Auto) 6 % (0-9) 7 % (0-9) Eosinophils (%) (Auto) 1 % (0-3) 1 % (0-3) Basophils (%) (Auto) 1 % (0-3) 1 % (0-3) Neutrophils # (Auto) 4.5 x10^3uL (1.8-7.7) 6.1 x10^3uL (1.8-7.7) Lymphocytes # (Auto) 0.9 x10^3/uL (1.0-4.8) 1.7 x10^3/uL (1.0-4.8) Monocytes # (Auto) 0.4 x10^3/uL (0.0-1.1) 0.6 x10^3/uL (0.0-1.1) Eosinophils # (Auto) 0.1 x10^3/uL (0.0-0.7) 0.1 x10^3/uL (0.0-0.7) Basophils # (Auto) 0.0 x10^3/uL (0.0-0.2) 0.0 x10^3/uL (0.0-0.2) Prothrombin Time 13.4 SEC (11.7-14.0) Prothromb Time International Ratio 1.1 (0.8-1.1) Sodium Level 142 mmol/L (136-145) 142 mmol/L (136-145) Potassium Level 4.1 mmol/L (3.5-5.1) 3.8 mmol/L (3.5-5.1) Chloride Level 104 mmol/L (98-107) 103 mmol/L (98-107) Carbon Dioxide Level 29 mmol/L (21-32) 28 mmol/L (21-32) Anion Gap 9 (6-14) 11 (6-14) Blood Urea Nitrogen 14 mg/dL (7-20) 19 mg/dL (7-20) Creatinine 1.2 mg/dL (0.6-1.0) 1.3 mg/dL (0.6-1.0) Estimated GFR (Cockcroft-Gault) 43.3 39.5 Glucose Level 105 mg/dL (70-99) 64 mg/dL (70-99) Calcium Level 9.4 mg/dL (8.5-10.1) 8.9 mg/dL (8.5-10.1) Magnesium Level 2.0 mg/dL (1.8-2.4) Total Bilirubin 0.6 mg/dL (0.2-1.0) Direct Bilirubin 0.1 mg/dL (0.0-0.2) Aspartate Amino Transf (AST/SGOT) 18 U/L (15-37) Alanine Aminotransferase (ALT/SGPT) 11 U/L (14-59) Alkaline Phosphatase 102 U/L (46-116) Creatine Kinase 92 U/L (26-192) Creatine Kinase MB (Mass) 1.5 ng/mL (0.0-3.6) Creatine Kinase MB Relative Index 1.6 % (0-4) Troponin I Quantitative < 0.017 ng/mL (0.000-0.055) < 0.017 ng/mL (0.000-0.055) < 0.017 ng/mL (0.000-0.055) [id number]-M-Type Natriuretic Peptide 700 pg/mL (0-449) Total Protein 6.3 g/dL (6.4-8.2) Albumin 3.7 g/dL (3.4-5.0) Thyroid Stimulating Hormone (TSH) 0.101 uIU/mL (0.358-3.74) Urine Color Yellow Urine Clarity Clear Urine pH 6.5 Urine Specific [place] 1.010 Urine Protein Negative mg/dL (NEG-TRACE) Urine Glucose (UA) Negative mg/dL (NEG) Urine Ketones (Stick) Negative mg/dL (NEG) Urine Blood Negative (NEG) Urine Nitrite Positive (NEG) Urine Bilirubin Negative (NEG) Urine Urobilinogen Dipstick 0.2 mg/dL (0.2 mg/dL) Urine Leukocyte Esterase Small (NEG) Urine RBC 0 /HPF (0-2) Urine WBC 5-10 /HPF (0-4) Urine Squamous Epithelial Cells Occ /LPF Urine Transitional Epithelial Cells Occ /LPF Urine Bacteria Many /HPF (0-FEW) Triglycerides Level 110 mg/dL (0-150) Cholesterol Level 148 mg/dL (0-200) LDL Cholesterol, Calculated 70 mg/dL (0-100) VLDL Cholesterol, Calculated 22 mg/dL (0-40) Non-HDL Cholesterol Calculated 92 mg/dL (0-129) HDL Cholesterol 56 mg/dL (40-60) Cholesterol/HDL Ratio 2.6 Laboratory Tests Test 11/15/16 12:50 11/15/16 14:35 11/15/16 21:30 11/16/16 04:45 White Blood Count 5.8 x10^3/uL (4.0-11.0) 8.6 x10^3/uL (4.0-11.0) Red Blood Count 3.96 x10^6/uL (3.50-5.40) 3.99 x10^6/uL (3.50-5.40) Hemoglobin 11.8 g/dL (12.0-15.5) 11.8 g/dL (12.0-15.5) Hematocrit 35.4 % (36.0-47.0) 35.8 % (36.0-47.0) Mean Corpuscular Volume 89 fL (79-100) 90 fL (79-100) Mean Corpuscular Hemoglobin 30 pg (25-35) 30 pg (25-35) Mean Corpuscular Hemoglobin Concent 33 g/dL (31-37) 33 g/dL (31-37) Red Cell Distribution Width 12.6 % (11.5-14.5) 13.0 % (11.5-14.5) Platelet Count 198 x10^3/uL (140-400) 239 x10^3/uL (140-400) Neutrophils (%) (Auto) 77 % (31-73) 72 % (31-73) Lymphocytes (%) (Auto) 15 % (24-48) 20 % (24-48) Monocytes (%) (Auto) 6 % (0-9) 7 % (0-9) Eosinophils (%) (Auto) 1 % (0-3) 1 % (0-3) Basophils (%) (Auto) 1 % (0-3) 1 % (0-3) Neutrophils # (Auto) 4.5 x10^3uL (1.8-7.7) 6.1 x10^3uL (1.8-7.7) Lymphocytes # (Auto) 0.9 x10^3/uL (1.0-4.8) 1.7 x10^3/uL (1.0-4.8) Monocytes # (Auto) 0.4 x10^3/uL (0.0-1.1) 0.6 x10^3/uL (0.0-1.1) Eosinophils # (Auto) 0.1 x10^3/uL (0.0-0.7) 0.1 x10^3/uL (0.0-0.7) Basophils # (Auto) 0.0 x10^3/uL (0.0-0.2) 0.0 x10^3/uL (0.0-0.2) Prothrombin Time 13.4 SEC (11.7-14.0) Prothromb Time International Ratio 1.1 (0.8-1.1) Sodium Level 142 mmol/L (136-145) 142 mmol/L (136-145) Potassium Level 4.1 mmol/L (3.5-5.1) 3.8 mmol/L (3.5-5.1) Chloride Level 104 mmol/L (98-107) 103 mmol/L (98-107) Carbon Dioxide Level 29 mmol/L (21-32) 28 mmol/L (21-32) Anion Gap 9 (6-14) 11 (6-14) Blood Urea Nitrogen 14 mg/dL (7-20) 19 mg/dL (7-20) Creatinine 1.2 mg/dL (0.6-1.0) 1.3 mg/dL (0.6-1.0) Estimated GFR (Cockcroft-Gault) 43.3 39.5 Glucose Level 105 mg/dL (70-99) 64 mg/dL (70-99) Calcium Level 9.4 mg/dL (8.5-10.1) 8.9 mg/dL (8.5-10.1) Magnesium Level 2.0 mg/dL (1.8-2.4) Total Bilirubin 0.6 mg/dL (0.2-1.0) Direct Bilirubin 0.1 mg/dL (0.0-0.2) Aspartate Amino Transf (AST/SGOT) 18 U/L (15-37) Alanine Aminotransferase (ALT/SGPT) 11 U/L (14-59) Alkaline Phosphatase 102 U/L (46-116) Creatine Kinase 92 U/L (26-192) Creatine Kinase MB (Mass) 1.5 ng/mL (0.0-3.6) Creatine Kinase MB Relative Index 1.6 % (0-4) Troponin I Quantitative < 0.017 ng/mL (0.000-0.055) < 0.017 ng/mL (0.000-0.055) < 0.017 ng/mL (0.000-0.055) DD-Qii-R-Type Natriuretic Peptide 700 pg/mL (0-449) Total Protein 6.3 g/dL (6.4-8.2) Albumin 3.7 g/dL (3.4-5.0) Thyroid Stimulating Hormone (TSH) 0.101 uIU/mL (0.358-3.74) Urine Color Yellow Urine Clarity Clear Urine pH 6.5 Urine Specific [place] 1.010 Urine Protein Negative mg/dL (NEG-TRACE) Urine Glucose (UA) Negative mg/dL (NEG) Urine Ketones (Stick) Negative mg/dL (NEG) Urine Blood Negative (NEG) Urine Nitrite Positive (NEG) Urine Bilirubin Negative (NEG) Urine Urobilinogen Dipstick 0.2 mg/dL (0.2 mg/dL) Urine Leukocyte Esterase Small (NEG) Urine RBC 0 /HPF (0-2) Urine WBC 5-10 /HPF (0-4) Urine Squamous Epithelial Cells Occ /LPF Urine Transitional Epithelial Cells Occ /LPF Urine Bacteria Many /HPF (0-FEW) Triglycerides Level 110 mg/dL (0-150) Cholesterol Level 148 mg/dL (0-200) LDL Cholesterol, Calculated 70 mg/dL (0-100) VLDL Cholesterol, Calculated 22 mg/dL (0-40) Non-HDL Cholesterol Calculated 92 mg/dL (0-129) HDL Cholesterol 56 mg/dL (40-60) Cholesterol/HDL Ratio 2.6 Medications Current Medications Fentanyl Citrate (Fentanyl 2ml Vial) 25 mcg PRN Q15MIN PRN IV PAIN GREATER THAN 3/10 Last administered on 11/16/16t 06:10; Start 11/15/16 at 13:45; Stop at 13:44 Ondansetron HCl (Zofran) 4 mg PRN Q8HRS PRN IV NAUSEA/VOMITING; Start 11/15/16 at 15:30; Stop 11/16/16 at 15:29 Fentanyl Citrate (Fentanyl 2ml Vial) 25 mcg PRN Q1HR PRN IV PAIN; Start at 15:30; Stop 11/16/16 at 15:29 Hydralazine HCl (Apresoline) 10 mg 1X ONCE IVP Last administered on 11/15/16t 15:27; Start 11/15/16 at 15:30; Stop 11/15/16 at 15:31; Status DC Acetaminophen (Tylenol) 650 mg Q8HRS PO Last administered on 11/16/16 06:08; Start 11/15/16 at 22:00 Amlodipine Besylate (Norvasc) 2.5 mg HS PO ; Start 11/15/16 at 21:00 Aspirin (Ecotrin) 81 mg DAILY PO Last administered on 11/16/16 08:42; Start at 09:00 Losartan Potassium (Cozaar) 50 mg DAILY PO Last administered on 11/16/16 08:42 ; Start 11/16/16 at 09:00 Meloxicam (Mobic) 7.5 mg DAILY PO Last administered on 11/16/16 08:43; Start 11/16/16 at 09:00 Pantoprazole Sodium (Protonix) 40 mg DAILY PO Last administered on 11/16/16 08 :44; Start 11/16/16 at 09:00 Escitalopram Oxalate (Lexapro) 10 mg DAILY PO ; Start 11/16/16 at 09:00 Amlodipine Besylate (Norvasc) 5 mg 1X ONCE PO ; Start 11/15/16 at 16:30; Stop 11/15/16 at 16:31; Status DC Enoxaparin Sodium (Lovenox Per Pharmacy Prophylaxis Dosing) 1 each PRN DAILY PRN MC SEE COMMENTS; Start 11/15/16 at 16:15; Status UNV Enoxaparin Sodium (Lovenox 40mg Syringe) 40 mg Q24H SQ Last administered on 20:51; Start 11/15/16 at 20:00 Diphenhydramine HCl (Benadryl) 25 mg PRN DAILY PRN PO ITCHING Last administered on 11/15/16 23:07; Start 11/15/16 at 22:00 Ceftriaxone Sodium 1 gm/ Sodium Chloride 50 ml @ 100 mls/hr Q24H IV ; Start at 11:00; Status UNV Active Scripts Active Reported Diphenhydramine Hcl 50 Mg Capsule 1 Cap PO PRN QHS PRN FENTANYL 25mcg/hr (Fentanyl) 1 Each Patch.td72 1 Patch TP Q3DAYS Vitamin B-12 (Cyanocobalamin (Vitamin B-12)) 1,000 Mcg Tablet 1 Tab PO DAILY Atorvastatin Calcium 20 Mg Tablet 1 Tab PO HS Clopidogrel (Clopidogrel Bisulfate) 75 Mg Tablet 1 Tab PO DAILY Tylenol (Acetaminophen) 325 Mg Tablet 1,000 Mg PO PRN Q6HRS PRN Escitalopram Oxalate 10 Mg Tablet 1 Tab PO DAILY Vitamin D (Cholecalciferol (Vitamin D3)) 1,000 Unit Capsule 1,000 Unit PO HS Aspir 81 (Aspirin) 81 Mg Tablet.dr 81 Mg PO HS Pantoprazole Sodium 40 Mg Tablet.dr 40 Mg PO DAILY Meloxicam 7.5 Mg Tablet 7.5 Mg PO BID Bystolic (Nebivolol) 10 Mg Tablet 5 Mg PO DAILY Vitals/I & O Vital Sign - Last 24 Hours 11/15/16 11/15/16 11/15/16 11/15/16 11:55 12:26 13:50 14:55 Temp 97.5 97.5 Pulse 65 64 64 Resp 18 31 20 20 B/P (MAP) 193/95 (127) 162/81 (108) 203/101 (135) Pulse Ox 100 98 97 O2 Delivery Room Air Room Air Room Air Room Air 11/15/16 11/15/16 11/15/16 11/15/16 15:27 15:35 16:06 16:40 Pulse 62 62 70 70 Resp 16 29 16 B/P (MAP) 203/97 194/84 (120) 218/85 (129) 175/67 (103) Pulse Ox 97 100 99 O2 Delivery Room Air Room Air Room Air 11/15/16 11/15/16 11/15/16 11/15/16 16:55 17:30 17:30 19:00 Temp 96.6 97.7 96.6 97.7 Pulse 70 73 Resp 16 19 18 B/P (MAP) 164/72 (102) 120/48 (72) Pulse Ox 99 97 94 O2 Delivery Room Air Room Air Room Air 11/15/16 11/15/16 11/15/16 11/15/16 20:00 20:53 21:45 22:50 Temp 97.9 97.9 Pulse 64 Resp 18 18 18 B/P (MAP) 146/67 (93) Pulse Ox 97 95 O2 Delivery Room Air Room Air Room Air 11/15/16 11/15/16 11/16/16 11/16/16 22:51 22:52 03:00 06:10 Temp 97.7 97.7 Pulse 68 Resp 18 18 B/P (MAP) 139/76 (97) 107/62 (77) 169/72 (104) Pulse Ox 94 94 O2 Delivery Room Air Room Air 11/16/16 11/16/16 11/16/16 11/16/16 07:00 07:07 08:00 08:42 Temp 96.6 96.6 Pulse 62 62 Resp 18 B/P (MAP) 172/61 (98) 172/61 Pulse Ox 98 94 O2 Delivery Room Air Room Air Room Air 11/16/16 10:49 Temp 96.4 96.4 Pulse 71 Resp 16 B/P (MAP) 155/59 (91) 149/77 (101) 114/61 (78) Pulse Ox 96 O2 Delivery Room Air Intake and Output 11/15/16 11/15/16 11/16/16 15:00 23:00 07:00 Intake Total 250 ml Balance 250 ml CAROLINA SANCHEZ MD Nov 16, 2016 11:09
[2016-11-16] MEDS: ESCITALOPRAM 10 MG TABLET. PO SCH (11:23)
[2016-11-16] MEDS ORDERED: diphenhydrAMINE HCL 25 MG CAPSULE PO PRN (11:30)
[2016-11-16] MEDS ORDERED: METOPROLOL TART IMMED RELEASE 25 MG TABLET. PO SCH (12:00)
[2016-11-16] MEDS ORDERED: fentaNYL 25MCG/HR PATCH 1 PATCH PATCH.TD72 TD SCH (12:00)
--- NOTE | 2016-11-16 12:05 | PDOC2 ---
[facility] [employer] 11/16/16 1205: CARDIAC CONSULT DATE OF CONSULT Date of Consult DATE: 11/16/16 TIME: 12:00 REASON FOR CONSULT Reason for Consult: Hypertension Syncope REFERRING PHYSICIAN Referring Physician: Dr. Lozoya SOURCE Source: Chart review, Patient HISTORY OF PRESENT ILLNESS HISTORY OF PRESENT ILLNESS This is a 81 yo female who presented secondary to fall. Patient was out shopping yesterday. Got off the bus to go home. Waking into the office of the housing facility and suddenly got dizzy and felling backwards. Does not think she passed out, but unsure. Denies any chest pain, palpitations, diaphoresis, or nausea/vomiting. Has "dizzy spells" sometimes (has not occurred recently). BP usually low when this happens. BP significantly elevated upon arrival; forgot to take routine home medications yesterday morning. PAST MEDICAL HISTORY Cardiovascular: HTN, Hyperlipidemia Pulmonary: No pertinent hx CENTRAL NERVOUS SYSTEM: CVA, Other (forgetful) GI: GERD Heme/Onc: No pertinent hx Hepatobiliary: No pertinent hx Psych: No pertinent hx Musculoskeletal: low back pain, Osteoarthritis Rheumatologic: No pertinent hx Infectious disease: No pertinent hx ENT: No pertinent hx Renal/: No pertinent hx Endocrine: Hypothyroidism Dermatology: No pertinent hx PAST SURGICAL HISTORY Past Surgical History: Total hip replacement (left ), Total knee replacement ( right ), Tubal Ligation, Other (thyroid cyst ) FAMILY HISTORY Family History: Cancer SOCIAL HISTORY Smoke: No ALCOHOL: none Drugs: None Lives: Alone CURRENT MEDICATIONS CURRENT MEDICATIONS Current Medications Medications (Trade) Dose Ordered Sig/Brice Route PRN Reason Start Time Stop Time Status Last Admin Dose Admin Fentanyl Citrate (Fentanyl 2ml Vial) 25 mcg PRN Q15MIN PRN IV PAIN GREATER THAN 3/10 11/15/16 13:45 11/16/16 13:44 11/16/16 06:10 Hydralazine HCl (Apresoline) 10 mg 1X ONCE IVP 11/15/16 15:30 11/15/16 15:31 DC 11/15/16 15:27 Acetaminophen (Tylenol) 650 mg Q8HRS PO 11/15/16 22:00 11/16/16 06:08 Aspirin (Ecotrin) 81 mg DAILY PO 11/16/16 09:00 11/16/16 08:42 Losartan Potassium (Cozaar) 50 mg DAILY PO 11/16/16 09:00 11/16/16 08:42 Meloxicam (Mobic) 7.5 mg DAILY PO 11/16/16 09:00 11/16/16 08:43 Pantoprazole Sodium (Protonix) 40 mg DAILY PO 11/16/16 09:00 11/16/16 08:44 Escitalopram Oxalate (Lexapro) 10 mg DAILY PO 11/16/16 09:00 11/16/16 11:23 Enoxaparin Sodium (Lovenox 40mg Syringe) 40 mg Q24H SQ 11/15/16 20:00 11/15/16 20:51 Diphenhydramine HCl (Benadryl) 25 mg PRN DAILY PRN PO ITCHING 11/15/16 22:00 11/15/16 23:07 ALLERGIES ALLERGIES: Coded Allergies: Penicillins (Unverified Allergy, Severe, rash, 11/17/13) fosphenytoin (Verified Allergy, Intermediate, 11/15/16) ROS Review of System 14 point ROS conducted with pertinent positives note above in HPI. PHYSICAL EXAM General: Alert, Oriented X3, Cooperative, No acute distress, Other (forgetful) HEENT: Atraumatic, Mucous membr. moist/pink Lungs: Clear to auscultation, Normal air movement Heart: Regular rate, Normal S1, Normal S2, No murmurs Abdomen: Soft, No tenderness Extremities: Normal pulses, Other (trace bilateral LE edema ) Skin: No significant lesion Neuro: Normal speech, Sensation intact Psych/Mental Status: Mental status NL, Mood NL MUSCULOSKELETAL: Osteoarthritic changes both hands VITALS VITALS Vital Signs Date Time Temp Pulse Resp B/P (MAP) Pulse Ox O2 Delivery O2 Flow Rate FiO2 11/16/16 10:49 96.4 71 16 155/59 (91) 96 Room Air 96.4 149/77 (101) 114/61 (78) LABS Lab: Laboratory Tests Test 11/15/16 12:50 11/15/16 14:35 11/15/16 21:30 11/16/16 04:45 White Blood Count 5.8 x10^3/uL (4.0-11.0) 8.6 x10^3/uL (4.0-11.0) Red Blood Count 3.96 x10^6/uL (3.50-5.40) 3.99 x10^6/uL (3.50-5.40) Hemoglobin 11.8 g/dL (12.0-15.5) 11.8 g/dL (12.0-15.5) Hematocrit 35.4 % (36.0-47.0) 35.8 % (36.0-47.0) Mean Corpuscular Volume 89 fL (79-100) 90 fL (79-100) Mean Corpuscular Hemoglobin 30 pg (25-35) 30 pg (25-35) Mean Corpuscular Hemoglobin Concent 33 g/dL (31-37) 33 g/dL (31-37) Red Cell Distribution Width 12.6 % (11.5-14.5) 13.0 % (11.5-14.5) Platelet Count 198 x10^3/uL (140-400) 239 x10^3/uL (140-400) Neutrophils (%) (Auto) 77 % (31-73) 72 % (31-73) Lymphocytes (%) (Auto) 15 % (24-48) 20 % (24-48) Monocytes (%) (Auto) 6 % (0-9) 7 % (0-9) Eosinophils (%) (Auto) 1 % (0-3) 1 % (0-3) Basophils (%) (Auto) 1 % (0-3) 1 % (0-3) Neutrophils # (Auto) 4.5 x10^3uL (1.8-7.7) 6.1 x10^3uL (1.8-7.7) Lymphocytes # (Auto) 0.9 x10^3/uL (1.0-4.8) 1.7 x10^3/uL (1.0-4.8) Monocytes # (Auto) 0.4 x10^3/uL (0.0-1.1) 0.6 x10^3/uL (0.0-1.1) Eosinophils # (Auto) 0.1 x10^3/uL (0.0-0.7) 0.1 x10^3/uL (0.0-0.7) Basophils # (Auto) 0.0 x10^3/uL (0.0-0.2) 0.0 x10^3/uL (0.0-0.2) Prothrombin Time 13.4 SEC (11.7-14.0) Prothromb Time International Ratio 1.1 (0.8-1.1) Sodium Level 142 mmol/L (136-145) 142 mmol/L (136-145) Potassium Level 4.1 mmol/L (3.5-5.1) 3.8 mmol/L (3.5-5.1) Chloride Level 104 mmol/L (98-107) 103 mmol/L (98-107) Carbon Dioxide Level 29 mmol/L (21-32) 28 mmol/L (21-32) Anion Gap 9 (6-14) 11 (6-14) Blood Urea Nitrogen 14 mg/dL (7-20) 19 mg/dL (7-20) Creatinine 1.2 mg/dL (0.6-1.0) 1.3 mg/dL (0.6-1.0) Estimated GFR (Cockcroft-Gault) 43.3 39.5 Glucose Level 105 mg/dL (70-99) 64 mg/dL (70-99) Calcium Level 9.4 mg/dL (8.5-10.1) 8.9 mg/dL (8.5-10.1) Magnesium Level 2.0 mg/dL (1.8-2.4) Total Bilirubin 0.6 mg/dL (0.2-1.0) Direct Bilirubin 0.1 mg/dL (0.0-0.2) Aspartate Amino Transf (AST/SGOT) 18 U/L (15-37) Alanine Aminotransferase (ALT/SGPT) 11 U/L (14-59) Alkaline Phosphatase 102 U/L (46-116) Creatine Kinase 92 U/L (26-192) Creatine Kinase MB (Mass) 1.5 ng/mL (0.0-3.6) Creatine Kinase MB Relative Index 1.6 % (0-4) Troponin I Quantitative < 0.017 ng/mL (0.000-0.055) < 0.017 ng/mL (0.000-0.055) < 0.017 ng/mL (0.000-0.055) JI-Xrp-[id number]-Type Natriuretic Peptide 700 pg/mL (0-449) Total Protein 6.3 g/dL (6.4-8.2) Albumin 3.7 g/dL (3.4-5.0) Thyroid Stimulating Hormone (TSH) 0.101 uIU/mL (0.358-3.74) Urine Color Yellow Urine Clarity Clear Urine pH 6.5 Urine Specific [place] 1.010 Urine Protein Negative mg/dL (NEG-TRACE) Urine Glucose (UA) Negative mg/dL (NEG) Urine Ketones (Stick) Negative mg/dL (NEG) Urine Blood Negative (NEG) Urine Nitrite Positive (NEG) Urine Bilirubin Negative (NEG) Urine Urobilinogen Dipstick 0.2 mg/dL (0.2 mg/dL) Urine Leukocyte Esterase Small (NEG) Urine RBC 0 /HPF (0-2) Urine WBC 5-10 /HPF (0-4) Urine Squamous Epithelial Cells Occ /LPF Urine Transitional Epithelial Cells Occ /LPF Urine Bacteria Many /HPF (0-FEW) Triglycerides Level 110 mg/dL (0-150) Cholesterol Level 148 mg/dL (0-200) LDL Cholesterol, Calculated 70 mg/dL (0-100) VLDL Cholesterol, Calculated 22 mg/dL (0-40) Non-HDL Cholesterol Calculated 92 mg/dL (0-129) HDL Cholesterol 56 mg/dL (40-60) Cholesterol/HDL Ratio 2.6 ECHOCARDIOGRAM ECHOCARDIOGRAM <Conclusion> Technically difficult study. Valves not well visualized. Left ventricle systolic function is normal. The Ejection Fraction is 55-60%. There is normal LV segmental wall motion. Transmitral Doppler flow pattern is Grade I-abnormal relaxation pattern. Trace aortic regurgitation. Trace tricuspid valve regurgitation. There is no evidence of significant pericardial effusion. DATE: 01/31/16 1640 ASSESSMENT/PLAN ASSESSMENT/PLAN 1. Syncope; echo 03/14 with preserved LV function. No significant valvular insufficiency 2. Accelerated hypertension; secondary to med noncompliance. now improved. 3. Hyperlipidemia; lipids on goal. continue statin therapy 4. Hypothyroidism: TSH 0.101 5. H/o CVA; on ASA and Plavix 6. UTI; IV antibiotics initiated per PCP Recommendations Monitor telemetry Check echo to assess LV function Check orthostatic HR and BP. If above unrevealing, consider event monitor upon discharge Problems: HARJINDER ROJAS MD 11/16/16 2115: CARDIAC CONSULT ALLERGIES ALLERGIES: Coded Allergies: Penicillins (Unverified Allergy, Severe, rash, 11/17/13) fosphenytoin (Verified Allergy, Intermediate, 11/15/16) ASSESSMENT/PLAN ASSESSMENT/PLAN Patient seen and examined. Agree with BELL SPINNER SOUSAPHONES's assessment and plan. Tele did not show any arrhythmias so far. 2D echo showed EF 50-55% without any significant structural abnormalities. BP better controlled since admission. Plan out patient event monitor to rule out arrhythmic etiology for her syncope. Thank you for your consultation. Problems: CAMILLE ASENCIO APRN Nov 16, 2016 12:05 HARJINDER ROJAS MD Nov 16, 2016 21:15
[2016-11-16] MEDS: CYANOCOBALAMIN (VITAMIN B-12) 1,000 MCG TABLET. PO SCH (12:20)
[2016-11-16] MEDS: CLOPIDOGREL BISULFATE 75 MG TABLET PO SCH (12:20)
[2016-11-16 15:26] VITALS: BP 144/65
--- NOTE | 2016-11-16 17:25 | CARD ---
APPROVED REPORT EXAM: Two-dimensional and M-mode echocardiogram with Doppler and color Doppler. Other Information Quality : Good INDICATION Syncope 2D DIMENSIONS Left Atrium(2D)2.8 (1.6-4.0cm)IVSd1.2 (0.7-1.1cm) Aortic Root(2D)2.5 (2.0-3.7cm)LVDd2.8 (3.9-5.9cm) LVOT Diameter2.2 (1.8-2.4cm)PWd1.1 (0.7-1.1cm) LVDs2.6 (2.5-4.0cm)FS (%) 9.2 % SV6.4 mlLVEF(%)21.2 (>50%) Aortic Valve AoV Peak Luke.160.1cm/sAoV VTI32.8cm AO Peak GR.10.3mmHgLVOT Peak Luke.104.6cm/s LVOT VTI 24.89cmAO Mean GR.5mmHg ZACKARY (VMAX)2.92dt7APM (VTI)2.84cm2 Mitral Valve MV E Hbrgklil95.2cm/sMV DECEL [id number] MV A Nnyzygzw234.1cm/sMV [id number] E/A Ratio0.6MVA (PHT)1.81cm2 TDI E/Lateral E'8.6E/Medial E'9.4 Pulmonary Vein S1 Dwqjitqu58.3cm/sD2 Kozdugsm22.8cm/s PVa [id number] LEFT VENTRICLE The left ventricle is normal size. There is mild concentric left ventricular hypertrophy. Left ventri leonel systolic function is low normal. The Ejection Fraction is 50-55%. Septal motion consistent with c onduction abnormality. Tissue Doppler imaging reveals moderate left ventricular diastolic dysfunction . RIGHT VENTRICLE The right ventricle is normal size. The right ventricular systolic function is normal. ATRIA The left atrium size is normal. The right atrium size is normal. The interatrial septum is intact wit h no evidence for an atrial septal defect or patent foramen ovale as noted on 2-D or Doppler imaging. AORTIC VALVE The aortic valve is calcified but opens well. Doppler and Color Flow revealed trace aortic regurgitat ion. There is no significant aortic valvular stenosis. MITRAL VALVE The mitral valve is calcified but opens well. There is no evidence of mitral valve prolapse. There is no mitral valve stenosis. Doppler and Color-flow revealed trace mitral regurgitation. TRICUSPID VALVE Doppler and Color Flow revealed no tricuspid valve regurgitation noted. There is no tricuspid valve s tenosis. PULMONIC VALVE Doppler and Color Flow revealed trace pulmonic valvular regurgitation. There is no pulmonic valvular stenosis. GREAT VESSELS The aortic root is normal in size. The ascending aorta is mildly dilated The IVC is normal in size an d collapses >50% with inspiration. PERICARDIAL EFFUSION There is no evidence of significant pericardial effusion. Critical Notification Critical Value: No <Conclusion> Left ventricle systolic function is low normal. The Ejection Fraction is 50-55%. No gross valvular disease but poor image quality.
[2016-11-16 19:00] VITALS: BP 157/80
[2016-11-16] MEDS ORDERED: CHOLECALCIFEROL (VITAMIN D3) 1,000 UNIT TABLET PO SCH (21:00)
[2016-11-16] MEDS ORDERED: ATORVASTATIN CALCIUM 20 MG TABLET PO SCH (21:00)
[2016-11-16] MEDS: METOPROLOL TART IMMED RELEASE 25 MG TABLET. PO SCH (21:02)
[2016-11-16] MEDS: ENOXAPARIN 40 MG/0.4 ML SYRINGE. SQ SCH (21:04)
[2016-11-16] MEDS: diphenhydrAMINE HCL 25 MG CAPSULE PO PRN (22:08)
[2016-11-16 23:00] VITALS: BP 129/67
[2016-11-17] VITALS (10 sets, daily range): BP systolic 98–186; BP diastolic 45–91
[2016-11-17 05:36] LABS: BASO % 1 % (0-3); EOS % 3 % (0-3); HEMATOCRIT 34.4 % (36.0-47.0); HEMOGLOBIN 11.4 g/dL (12.0-15.5); LYMPH # 1.5 x10^3/uL (1.0-4.8); LYMPH % 23 % (24-48); MEAN CORPUSCULAR HEMOGLOBIN 30 pg (25-35); MEAN CORPUSCULAR HGB CONC 33 g/dL (31-37); MEAN CORPUSCULAR VOLUME 90 fL (79-100); MONO % 7 % (0-9); NEUT % 66 % (31-73); PLATELET COUNT 211 x10^3/uL (140-400); RED BLOOD COUNT 3.84 x10^6/uL (3.50-5.40); RED CELL DISTRIBUTION WIDTH 12.4 % (11.5-14.5); WHITE BLOOD COUNT 6.5 x10^3/uL (4.0-11.0)
[2016-11-17] MEDS: ACETAMINOPHEN 325 MG TABLET. PO SCH ×2 (05:45→14:22)
[2016-11-17 05:48] LABS: CALCIUM 8.6 mg/dL (8.5-10.1); CREATININE 1.1 mg/dL (0.6-1.0); GFR 47.9; POTASSIUM 4.1 mmol/L (3.5-5.1)
[2016-11-17] MEDS: ESCITALOPRAM 10 MG TABLET. PO SCH (08:40)
[2016-11-17] MEDS: CLOPIDOGREL BISULFATE 75 MG TABLET PO SCH (08:40)
[2016-11-17] MEDS: ASPIRIN ENTERIC COATED 81 MG TABLET.DR. PO SCH (08:40)
[2016-11-17] MEDS: CYANOCOBALAMIN (VITAMIN B-12) 1,000 MCG TABLET. PO SCH (08:40)
[2016-11-17] MEDS: MELOXICAM 7.5 MG TABLET PO SCH (08:41)
[2016-11-17] MEDS: PANTOPRAZOLE 40 MG TABLET.DR. PO SCH (08:41)
[2016-11-17] MEDS: LOSARTAN POTASSIUM 50 MG TABLET. PO SCH (08:41)
[2016-11-17] MEDS: METOPROLOL TART IMMED RELEASE 25 MG TABLET. PO SCH (08:42)
--- NOTE | 2016-11-17 12:04 | PDOC ---
[address] [employer] 11/17/16 1204: CARDIO Progress Notes Date and Time Date of Service 11/17/2016 Time of Evaluation 1140 Subjective Subjective: No Chest Pain, No shortness of breath, No Palpitations, No Dizziness, Other (sitting up comfortably) Vitals Vitals Vital Signs Date Time Temp Pulse Resp B/P (MAP) Pulse Ox O2 Delivery O2 Flow Rate FiO2 11/17/16 10:54 96.6 57 18 157/61 (93) 97 Room Air 96.6 Weight Weight [ ] Input and Output Intake and Output Intake and Output 11/17/16 07:00 Intake Total 1350 ml Balance 1350 ml Intake Oral 1350 ml # Voids 9 Laboratory Labs Laboratory Tests Test 11/17/16 04:50 White Blood Count 6.5 x10^3/uL (4.0-11.0) Red Blood Count 3.84 x10^6/uL (3.50-5.40) Hemoglobin 11.4 g/dL (12.0-15.5) Hematocrit 34.4 % (36.0-47.0) Mean Corpuscular Volume 90 fL (79-100) Mean Corpuscular Hemoglobin 30 pg (25-35) Mean Corpuscular Hemoglobin Concent 33 g/dL (31-37) Red Cell Distribution Width 12.4 % (11.5-14.5) Platelet Count 211 x10^3/uL (140-400) Neutrophils (%) (Auto) 66 % (31-73) Lymphocytes (%) (Auto) 23 % (24-48) Monocytes (%) (Auto) 7 % (0-9) Eosinophils (%) (Auto) 3 % (0-3) Basophils (%) (Auto) 1 % (0-3) Neutrophils # (Auto) 4.2 x10^3uL (1.8-7.7) Lymphocytes # (Auto) 1.5 x10^3/uL (1.0-4.8) Monocytes # (Auto) 0.5 x10^3/uL (0.0-1.1) Eosinophils # (Auto) 0.2 x10^3/uL (0.0-0.7) Basophils # (Auto) 0.0 x10^3/uL (0.0-0.2) Sodium Level 140 mmol/L (136-145) Potassium Level 4.1 mmol/L (3.5-5.1) Chloride Level 102 mmol/L (98-107) Carbon Dioxide Level 29 mmol/L (21-32) Anion Gap 9 (6-14) Blood Urea Nitrogen 14 mg/dL (7-20) Creatinine 1.1 mg/dL (0.6-1.0) Estimated GFR (Cockcroft-Gault) 47.9 Glucose Level 92 mg/dL (70-99) Calcium Level 8.6 mg/dL (8.5-10.1) Microbiology Micro Microbiology 11/15/16 Urine Culture - Preliminary, Resulted 11/15/16 Urine Culture Result 1 (MAXINE) - Preliminary, Resulted Physical Exam HEENT: Neck Supple W Full Motion Chest: Symmetric LUNGS: Clear to Auscultation Heart: S1S2, RRR (SR) Abdomen: Soft N/T Extremities: No Calf Tenderness Neurology: alert, oriented, follow commands Assessment Assessment 1. Syncope: likely due to orthostasis. Episodes of SB upper 40s without pauses. TTE with normal EF. 2. SH-OH syndrome 3. HLP 4. Hypothyroidism: TSH supratherapeutic level at 0.1 5. H/o CVA; on ASA and Plavix Recommendations 1. Outpt event monitor and note any significant underlying arrhythmia 2. Abdominal binder when OOB and compression stockings 3. Continue with current BP regimen 4. Maintain po hydration. ALLEN BABIN MD 11/17/16 1436: CARDIO Progress Notes Plan Plan Pt. seen and examined. Agree with above [employer] note. No acute events. Remains severely orthostatic Stop metoprolol. Home on cozaar, take at night time. PCP to dc on florinef to be taken during the day. supportive care. will f/u in the office with Dr. George. SAYRA VOGT APRN Nov 17, 2016 12:04 ALLEN BABIN MD Nov 17, 2016 14:36
[2016-11-17] MEDS ORDERED: CIPR250T30 PO (14:02)
[2016-11-17] MEDS ORDERED: LOSA25TA PO (14:07)
[2016-11-17] MEDS ORDERED: FLUD0.1T PO (14:07)
--- NOTE | 2016-11-17 14:11 | PDOC3 ---
Discharge Summary Visit Information Date of Admission: Nov 15, 2016 Date of Discharge: Nov 17, 2016 Admitting Diagnosis: syncope Final Diagnosis 1. Syncope: orthostatic hypotension. 2. UTI, gm neg pipe 3. Hyperlidpid 4. Hypothyroidism: synthroid recently cahnge 5. H/o CVA; on ASA and Plavix Problems Medical Problems: (1) Syncope Status: Acute Brief Hospital Course Allergies Allergies Coded Allergies Type Severity Reaction Last Updated Verified Penicillins Allergy Severe rash 11/17/13 No fosphenytoin Allergy Intermediate 11/15/16 Yes Vital Signs Vital Signs Date Time Temp Pulse Resp B/P (MAP) Pulse Ox O2 Delivery O2 Flow Rate FiO2 11/17/16 13:00 74 98/58 (71) 11/17/16 10:54 96.6 18 97 Room Air 96.6 Lab Results Laboratory Tests Test 11/15/16 14:35 11/15/16 21:30 11/16/16 04:45 11/17/16 04:50 Urine Color Yellow Urine Clarity Clear Urine pH 6.5 Urine Specific [place] 1.010 Urine Protein Negative mg/dL (NEG-TRACE) Urine Glucose (UA) Negative mg/dL (NEG) Urine Ketones (Stick) Negative mg/dL (NEG) Urine Blood Negative (NEG) Urine Nitrite Positive (NEG) Urine Bilirubin Negative (NEG) Urine Urobilinogen Dipstick 0.2 mg/dL (0.2 mg/dL) Urine Leukocyte Esterase Small (NEG) Urine RBC 0 /HPF (0-2) Urine WBC 5-10 /HPF (0-4) Urine Squamous Epithelial Cells Occ /LPF Urine Transitional Epithelial Cells Occ /LPF Urine Bacteria Many /HPF (0-FEW) Troponin I Quantitative < 0.017 ng/mL (0.000-0.055) < 0.017 ng/mL (0.000-0.055) White Blood Count 8.6 x10^3/uL (4.0-11.0) 6.5 x10^3/uL (4.0-11.0) Red Blood Count 3.99 x10^6/uL (3.50-5.40) 3.84 x10^6/uL (3.50-5.40) Hemoglobin 11.8 g/dL (12.0-15.5) 11.4 g/dL (12.0-15.5) Hematocrit 35.8 % (36.0-47.0) 34.4 % (36.0-47.0) Mean Corpuscular Volume 90 fL (79-100) 90 fL (79-100) Mean Corpuscular Hemoglobin 30 pg (25-35) 30 pg (25-35) Mean Corpuscular Hemoglobin Concent 33 g/dL (31-37) 33 g/dL (31-37) Red Cell Distribution Width 13.0 % (11.5-14.5) 12.4 % (11.5-14.5) Platelet Count 239 x10^3/uL (140-400) 211 x10^3/uL (140-400) Neutrophils (%) (Auto) 72 % (31-73) 66 % (31-73) Lymphocytes (%) (Auto) 20 % (24-48) 23 % (24-48) Monocytes (%) (Auto) 7 % (0-9) 7 % (0-9) Eosinophils (%) (Auto) 1 % (0-3) 3 % (0-3) Basophils (%) (Auto) 1 % (0-3) 1 % (0-3) Neutrophils # (Auto) 6.1 x10^3uL (1.8-7.7) 4.2 x10^3uL (1.8-7.7) Lymphocytes # (Auto) 1.7 x10^3/uL (1.0-4.8) 1.5 x10^3/uL (1.0-4.8) Monocytes # (Auto) 0.6 x10^3/uL (0.0-1.1) 0.5 x10^3/uL (0.0-1.1) Eosinophils # (Auto) 0.1 x10^3/uL (0.0-0.7) 0.2 x10^3/uL (0.0-0.7) Basophils # (Auto) 0.0 x10^3/uL (0.0-0.2) 0.0 x10^3/uL (0.0-0.2) Sodium Level 142 mmol/L (136-145) 140 mmol/L (136-145) Potassium Level 3.8 mmol/L (3.5-5.1) 4.1 mmol/L (3.5-5.1) Chloride Level 103 mmol/L (98-107) 102 mmol/L (98-107) Carbon Dioxide Level 28 mmol/L (21-32) 29 mmol/L (21-32) Anion Gap 11 (6-14) 9 (6-14) Blood Urea Nitrogen 19 mg/dL (7-20) 14 mg/dL (7-20) Creatinine 1.3 mg/dL (0.6-1.0) 1.1 mg/dL (0.6-1.0) Estimated GFR (Cockcroft-Gault) 39.5 47.9 Glucose Level 64 mg/dL (70-99) 92 mg/dL (70-99) Calcium Level 8.9 mg/dL (8.5-10.1) 8.6 mg/dL (8.5-10.1) Triglycerides Level 110 mg/dL (0-150) Cholesterol Level 148 mg/dL (0-200) LDL Cholesterol, Calculated 70 mg/dL (0-100) VLDL Cholesterol, Calculated 22 mg/dL (0-40) Non-HDL Cholesterol Calculated 92 mg/dL (0-129) HDL Cholesterol 56 mg/dL (40-60) Cholesterol/HDL Ratio 2.6 Laboratory Tests Test 11/17/16 04:50 White Blood Count 6.5 x10^3/uL (4.0-11.0) Red Blood Count 3.84 x10^6/uL (3.50-5.40) Hemoglobin 11.4 g/dL (12.0-15.5) Hematocrit 34.4 % (36.0-47.0) Mean Corpuscular Volume 90 fL (79-100) Mean Corpuscular Hemoglobin 30 pg (25-35) Mean Corpuscular Hemoglobin Concent 33 g/dL (31-37) Red Cell Distribution Width 12.4 % (11.5-14.5) Platelet Count 211 x10^3/uL (140-400) Neutrophils (%) (Auto) 66 % (31-73) Lymphocytes (%) (Auto) 23 % (24-48) Monocytes (%) (Auto) 7 % (0-9) Eosinophils (%) (Auto) 3 % (0-3) Basophils (%) (Auto) 1 % (0-3) Neutrophils # (Auto) 4.2 x10^3uL (1.8-7.7) Lymphocytes # (Auto) 1.5 x10^3/uL (1.0-4.8) Monocytes # (Auto) 0.5 x10^3/uL (0.0-1.1) Eosinophils # (Auto) 0.2 x10^3/uL (0.0-0.7) Basophils # (Auto) 0.0 x10^3/uL (0.0-0.2) Sodium Level 140 mmol/L (136-145) Potassium Level 4.1 mmol/L (3.5-5.1) Chloride Level 102 mmol/L (98-107) Carbon Dioxide Level 29 mmol/L (21-32) Anion Gap 9 (6-14) Blood Urea Nitrogen 14 mg/dL (7-20) Creatinine 1.1 mg/dL (0.6-1.0) Estimated GFR (Cockcroft-Gault) 47.9 Glucose Level 92 mg/dL (70-99) Calcium Level 8.6 mg/dL (8.5-10.1) Brief Hospital Course Ms. Shelton is a 81 old female admitted secondary to fall, got dizzy and felling backwards. prior dizzy spells ntoed tele OK + orthostasis UTI noted, treated with quinolone, large PCN allergy pt felt well, and wanted DC home Discharge Information Condition at Discharge: Improved Follow Up: Weeks Disposition/Orders: D/C to Home Scheduled Aspirin (Aspir 81), 81 MG PO HS, (Reported) Atorvastatin Calcium (Atorvastatin Calcium), 1 TAB PO HS, (Reported) Cholecalciferol (Vitamin D3) (Vitamin D), 1,000 UNIT PO HS, (Reported) Ciprofloxacin Hcl (Cipro), 1 TAB PO BID Clopidogrel Bisulfate (Clopidogrel), 1 TAB PO DAILY, (Reported) Cyanocobalamin (Vitamin B-12) (Vitamin B-12), 1 TAB PO DAILY, (Reported) Escitalopram Oxalate (Escitalopram Oxalate), 1 TAB PO DAILY, (Reported) Fentanyl (FENTANYL 25mcg/hr), 1 PATCH TP Q3DAYS, (Reported) Fludrocortisone Acetate (Fludrocortisone Acetate), 1 TAB PO DAILY Losartan Potassium (Cozaar), 25 MG PO DAILY Meloxicam (Meloxicam), 7.5 MG PO BID, (Reported) Nebivolol Hcl (Bystolic), 5 MG PO DAILY, (Reported) Pantoprazole Sodium (Pantoprazole Sodium), 40 MG PO DAILY, (Reported) Scheduled PRN Acetaminophen (Tylenol), 1,000 MG PO PRN Q6HRS PRN for PAIN, (Reported) Diphenhydramine Hcl (Diphenhydramine Hcl), 1 CAP PO PRN QHS PRN for INSOMNIA, ( Reported) Patient Instructions Patient Instructions abdominal binder fludrocortisone for orthostasis, no b-hortensia for same, relative hypotension f/u primary care and CV home health, f/u orthostatics time > 30min CAROLINA SANCHEZ MD Nov 17, 2016 14:11
== END 2016-11-17 15:30 | disposition home health service (06) | DRG 312 ==
LOC: ER 11:55 → 5 NORTH 14:12 → OBSVTOIN 15:18
PROVIDERS: ADMIT Internal Medicine; ATTEND Internal Medicine
DX: I95.1 Orthostatic hypotension (principal); N39.0 Urinary tract infection, site not specified; E04.2 Nontoxic multinodular goiter; E66.9 Obesity, unspecified; E78.00 Pure hypercholesterolemia, unspecified; E78.5 Hyperlipidemia, unspecified; E86.0 Dehydration; E03.9 Hypothyroidism, unspecified; K21.9 Gastro-esophageal reflux disease without esophagitis; M19.041 Primary osteoarthritis, right hand; M19.042 Primary osteoarthritis, left hand; Z96.643 Presence of artificial hip joint, bilateral; I12.9 Hypertensive chronic kidney disease with stage 1 through stage 4 chronic kidney disease, or unspecified chronic kidney disease; Z96.651 Presence of right artificial knee joint; F32.9 Major depressive disorder, single episode, unspecified; M54.5 Low back pain; N18.3 Chronic kidney disease, stage 3 (moderate); Z68.32 Body mass index [BMI] 32.0-32.9, adult; Z86.73 Personal history of transient ischemic attack (TIA), and cerebral infarction without residual deficits; Z88.0 Allergy status to penicillin; Z90.49 Acquired absence of other specified parts of digestive tract; Z91.14 Patient's other noncompliance with medication regimen; Z88.8 Allergy status to other drugs, medicaments and biological substances; Z91.19 Patient's noncompliance with other medical treatment and regimen; W18.39XA Other fall on same level, initial encounter; Y93.89 Activity, other specified; Y92.89 Other specified places as the place of occurrence of the external cause; Y99.8 Other external cause status
CPT/HCPCS: 36415; 70450; 71010; 72125; 73502; 80048; 80061; 80076; 81001; 82553; 83735; 83880; 84443; 84484; 85027; 85610; 87086; 93005; 93306; 96374; G0379; J0360; J1650; J1956; J3010; Q0163; 99285-25; A6539

== ENCOUNTER → 2016-11-26 | Outpatient (CLI) | payer MEDICARE ==
[2016-11-17 14:58] VITALS: BP 139/63
[~2016-11-26] MED LIST changes: +ATOR20TA58 PO; +CIPR250T30 PO; +CLOP75TA PO; +CYAN10005 PO; +DIPH50CA PO; +FENT1PAT15 TP; +FLUD0.1T PO; +LOSA25TA PO
--- NOTE | 2016-11-26 11:34 | RAD ---
3 view right hand radiograph 11/26/2016 Comparison: November 29, 2015. Clinical indication: Polyarthralgia. Findings: There is diffuse generalized osteopenia. No acute fracture or traumatic malalignment. There is severe osteoarthritis at first CMC, triscaphe, first IP, second and third PIP and DIP, and fifth PIP articulations. No abnormal periarticular calcifications. Impression: 1. No acute osseous abnormality. 2. Scattered areas of severe hand osteoarthritis, as detailed.
== END | disposition home or self-care (01) ==
LOC: RAD 10:55
PROVIDERS: ATTEND Internal Medicine Rheumatology
DX: M19.041 Primary osteoarthritis, right hand (principal)
CPT/HCPCS: 73130

== ENCOUNTER 2017-01-01 23:48 | Emergency (ER) | payer MEDICARE, OTHER ==
[~2017-01-01] VITALS: Ht 165.1 cm; Wt 86.2 kg
[~2017-01-01 23:48] MED LIST changes: +EPINEPHrine SYRINGE 1 MG/10 ML SYRINGE ONE; +EPINEPHrine VIAL 30 MG/30 ML VIAL ONE
[2017-01-02] MEDS ORDERED: fentaNYL PF VIAL 100 MCG/2 ML VIAL IV PRN (00:45)
--- NOTE | 2017-01-02 00:56 | PHYS DOC ---
Past Medical History Past Medical History: GERD, High Cholesterol, Hypertension, Stroke Past Surgical History: Appendectomy, Hip Replacement, Knee Replacement, Tonsillectomy Additional Past Surgical Histo: bilat knee and hip replacement Alcohol Use: None Drug Use: None Adult General Chief Complaint Chief Complaint: BACK PAIN OR INJURY HPI HPI Patient is a 81 year old female who presents with complaint of left-sided back and chest pain. Patient states that she had been having abnormal sensation to her chest and upper abdomen over the past 2 weeks, however she suddenly started getting a ripping pain along the left side of her back that radiates into her chest. Patient rates her pain currently as 10 out of 10. Patient has history of hypertension, hyperlipidemia, and stroke. Patient denies history of myocardial infarction. Patient states that she is having nausea associated with her symptoms. Patient denies any fevers. Patient has not taken any medications to help with symptoms at this time. Review of Systems Review of Systems Constitutional: Denies fever or chills [] Eyes: Denies change in visual acuity, redness, or eye pain [] HENT: Denies nasal congestion or sore throat [] Respiratory: Denies cough or shortness of breath [] Cardiovascular: Chest pain [] GI: Nausea, denies abdominal pain, vomiting, bloody stools or diarrhea [] : Denies dysuria or hematuria [] Musculoskeletal: Back pain[] Integument: Denies rash or skin lesions [] Neurologic: Denies headache, focal weakness or sensory changes [] Current Medications Current Medications Current Medications Medications (Trade) Dose Ordered Sig/Brice Start Time Stop Time Status Last Admin Dose Admin Aspirin (Children'S Aspirin) 324 mg 1X ONCE 01/02/17 01:00 01/02/17 01:01 DC 01/02/17 00:55 324 MG Esmolol HCl 250 ml @ 25.8 mls/hr CONT PRN 01/02/17 02:30 Fentanyl Citrate (Fentanyl 2ml Vial) 50 mcg PRN Q15MIN PRN 01/02/17 00:45 01/03/17 00:44 01/02/17 00:54 50 MCG Info (Do NOT chart on this entry -- for MONITORING) 1 each PRN DAILY PRN 01/02/17 01:00 01/04/17 00:59 Iohexol (Omnipaque 350 Mg/ml) 100 ml STK-MED ONCE 01/02/17 01:48 01/02/17 01:49 DC Morphine Sulfate 4 mg 1X ONCE 01/02/17 02:30 01/02/17 02:31 DC Nitroglycerin/ Dextrose 250 ml @ 1.5 mls/hr CONT PRN 01/02/17 02:30 Ondansetron HCl (Zofran) 4 mg 1X ONCE 01/02/17 01:00 01/02/17 01:01 DC 01/02/17 00:54 4 MG Allergies Allergies Allergies Coded Allergies Type Severity Reaction Last Updated Verified Penicillins Allergy Severe rash 11/17/13 No fosphenytoin Allergy Intermediate 11/15/16 Yes Physical Exam Physical Exam Constitutional: Alert, afebrile, hypertensive, appears in moderate to severe discomfort. [] HENT: Normocephalic, atraumatic, bilateral external ears normal, oropharynx moist, no oral exudates, nose normal. [] Eyes: PERRLA, EOMI, conjunctiva normal, no discharge. [] Neck: Normal range of motion, no tenderness, supple, no stridor. [] Cardiovascular:Heart rate regular rhythm, no murmur [] Lungs & Thorax: Bilateral breath sounds clear to auscultation [] Abdomen: Bowel sounds normal, soft, no tenderness, no masses, no pulsatile masses. [] Skin: Warm, dry, no erythema, no rash. [] Back: No tenderness, no CVA tenderness. [] Extremities: No tenderness, no cyanosis, no clubbing, ROM intact, no edema. [] Neurologic: Alert and oriented X 3, normal motor function, normal sensory function, no focal deficits noted. [] Current Patient Data Vital Signs Vital Signs Date Time Temp Pulse Resp B/P (MAP) Pulse Ox O2 Delivery O2 Flow Rate FiO2 01/02/17 01:30 56 18 180/76 (110) 96 Room Air 01/01/17 23:52 97.8 97.8 Lab Values Laboratory Tests Test 01/02/17 00:49 White Blood Count 7.7 x10^3/uL (4.0-11.0) Red Blood Count 3.81 x10^6/uL (3.50-5.40) Hemoglobin 11.3 g/dL (12.0-15.5) L Hematocrit 33.5 % (36.0-47.0) L Mean Corpuscular Volume 88 fL (79-100) Mean Corpuscular Hemoglobin 30 pg (25-35) Mean Corpuscular Hemoglobin Concent 34 g/dL (31-37) Red Cell Distribution Width 14.1 % (11.5-14.5) Platelet Count 199 x10^3/uL (140-400) Neutrophils (%) (Auto) 71 % (31-73) Lymphocytes (%) (Auto) 19 % (24-48) L Monocytes (%) (Auto) 7 % (0-9) Eosinophils (%) (Auto) 2 % (0-3) Basophils (%) (Auto) 1 % (0-3) Neutrophils # (Auto) 5.4 x10^3uL (1.8-7.7) Lymphocytes # (Auto) 1.5 x10^3/uL (1.0-4.8) Monocytes # (Auto) 0.6 x10^3/uL (0.0-1.1) Eosinophils # (Auto) 0.1 x10^3/uL (0.0-0.7) Basophils # (Auto) 0.1 x10^3/uL (0.0-0.2) Sodium Level 140 mmol/L (136-145) Potassium Level 2.5 mmol/L (3.5-5.1) *L Chloride Level 99 mmol/L (98-107) Carbon Dioxide Level 29 mmol/L (21-32) Anion Gap 12 (6-14) Blood Urea Nitrogen 10 mg/dL (7-20) Creatinine 0.9 mg/dL (0.6-1.0) Estimated GFR (Cockcroft-Gault) 60.4 Glucose Level 115 mg/dL (70-99) H Calcium Level 8.7 mg/dL (8.5-10.1) Magnesium Level 1.9 mg/dL (1.8-2.4) Total Bilirubin 0.7 mg/dL (0.2-1.0) Direct Bilirubin 0.2 mg/dL (0.0-0.2) Aspartate Amino Transferase (AST) 19 U/L (15-37) Alanine Aminotransferase (ALT) 20 U/L (14-59) Alkaline Phosphatase 99 U/L (46-116) Creatine Kinase 204 U/L (26-192) H Creatine Kinase MB (Mass) 2.5 ng/mL (0.0-3.6) Creatine Kinase MB Relative Index 1.2 % (0-4) Troponin I Quantitative < 0.017 ng/mL (0.000-0.055) OU-Baq-Y-Type Natriuretic Peptide 630 pg/mL (0-449) H Total Protein 5.8 g/dL (6.4-8.2) L Albumin 3.7 g/dL (3.4-5.0) Laboratory Tests 01/02/17 00:49 Laboratory Tests 01/02/17 00:49 EKG EKG Interpreted by me: Heart rate 58, sinus rhythm, left axis deviation,, no acute ST/T-wave abnormalities present, no significant changes from previous EKG[] Radiology/Procedures Radiology/Procedures One view AP chest x-ray interpreted by me at 0028: No pulmonary infiltrates or effusions, widened mediastinum compared to previous chest x-ray [facility] [address] [place], [place] [id number] IMAGING REPORT Signed PATIENT: ATILIO DAY ACCOUNT: [id number] : 1935 LOCATION: ER AGE: 81 SEX: F EXAM STATUS: REG ER ORD. PHYSICIAN: THELMA BOONE MD REASON: widened mediastinum, hypertension, chest pain PROCEDURE: CT ANGIO CHEST ABD PELVIS INDICATION: chest pain, back pain, widened mediastinum; Omni 350, 90ml COMPARISON: None. TECHNIQUE: Axial CT images obtained through the chest abdomen pelvis with intravenous contrast per angiogram protocol. Three-dimensional images processed per protocol. One or more of the following individualized dose reduction techniques were utilized for this examination: 1. Automated exposure control; 2. Adjustment of the mA and/or kV according to patient size; 3. Use of iterative reconstruction technique. FINDINGS: Chest: There is a thoracic aortic dissection identified originating at the distal aspect of the aortic arch and extending to the superior aspect of the abdominal aorta. 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 There is high density material infiltrating within the mediastinum adjacent to the aortic dissection with some of this high density material surrounding the thoracic aorta as well as the great vessels. There is some suspected thyroid nodules seen. Right brachiocephalic artery patent. Proximal common carotid arteries are patent. Proximal vertebral arteries are patent. Left subclavian artery patent. No evidence of pneumothorax. Mild dependent atelectasis. Trace left-sided pleural effusion. ABDOMEN: The patient's dissection extends to the superior aspect of the abdominal aorta. There is calcific atherosclerosis. No abdominal aortic aneurysm. 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 Gallstones. No peripancreatic edema. Spleen unremarkable. No hydronephrosis. Bladder largely obscured by artifact from arthroplasty. Colonic diverticulosis. Fat-containing umbilical hernia. No dilated loops of bowel to suggest obstruction. Degenerative changes left shoulder. Degenerative changes the spine with mild scoliotic curvature. IMPRESSION: Thoracic aortic dissection is identified originating at the distal aspect of the aortic arch and extending through the descending thoracic aorta. There is also high density material seen infiltrating within the mediastinum adjacent to the dissection as well as the great vessels of the neck. This is highly concerning for hemorrhage within the mediastinum which could be secondary to leakage/rupture. A portion of this hemorrhage could also be intramural within the wall of the thoracic aorta and great vessels given circumferential nature. Report called to the ordering physician at 2:19 AM on date of exam. Electronically signed by: Gen Pelayo MD (01/02/2017 2:39 AM) [facility] DICTATED and SIGNED BY: GEN PELAYO MD DATE: 01/02/17220 CC: THELMA BOONE MD; AISHWARYA TAVERAS MD ~ [] Course & Med Decision Making Course & Med Decision Making Pertinent Labs and Imaging studies reviewed. (See chart for details) The patient's chest x-ray showed evidence of a widened mediastinum which is interpreted at 0028. I informed family of suspicion of possible aneurysm versus aortic dissection at that time and recommended that the patient received CT imaging. Due to bradycardic heart rhythm,esmolol was withheld initially to avoid severe bradycardia. The patient's blood pressure had improved to 180 systolic with pain control using fentanyl. The patient was taken to CT scan at approximately [address] imaging. Immediately after completion of the study on the table, I was called to the CT room due to the patient going into send cardiac arrest. The vacuum technician stated that the patient cried out in pain from her chest and then 1 responsive. CPR was initiated immediately and patient was brought into the trauma bay for further care. The patient underwent several rounds of CPR and received 6 mg of epinephrine. Patient was intubated as outlined in procedure note. I also spoke with Dr. Hemphill of cardiothoracic surgery. He stated that there is nothing that can be done for the patient at this time as the patient has gone into cardiac arrest from ruptured aortic aneurysm. He recommended termination of resuscitation efforts. Despite efforts, the patient was unable to be resuscitated and was pronounced at 0231. Radiologist confirm the patient had evidence of type II aortic dissection as well as bleeding around the ascending aorta into the mediastinum. Cause of appears to be due to a ruptured aortic aneurysm. Family was notified of . I spoke with Dr. Vigil at 0301. He stated that the patient did not require an autopsy and that all tubes and lines could be removed from the patient. At 0330, I spoke with Dr. Bertrand maldonado who was on-call for the patient's primary physician, Dr. Peraza. He confirmed that they would be willing to sign the certificate. Critical care time excluding procedures: 60 minutes Dragon Disclaimer Dragon Disclaimer This electronic medical record was generated, in whole or in part, using a voice recognition dictation system. 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
[2017-01-02] MEDS ORDERED: CONTRAST GIVEN MC PRN (01:00)
[2017-01-02] MEDS ORDERED: IOHEXOL 350 MG/ML 100 ML VIAL. IV ONE (01:00)
[2017-01-02] MEDS ORDERED: ONDANSETRON PF 4 MG/2 ML VIAL. IV ONE (01:00)
[2017-01-02] MEDS ORDERED: ASPIRIN CHEWABLE 81 MG TABLET. PO ONE (01:00)
[2017-01-02 01:12] LABS: BASO # 0.1 x10^3/uL (0.0-0.2); BASO % 1 % (0-3); EOS % 2 % (0-3); HEMATOCRIT 33.5 % (36.0-47.0); HEMOGLOBIN 11.3 g/dL (12.0-15.5); LYMPH # 1.5 x10^3/uL (1.0-4.8); LYMPH % 19 % (24-48); MEAN CORPUSCULAR HEMOGLOBIN 30 pg (25-35); MEAN CORPUSCULAR HGB CONC 34 g/dL (31-37); MEAN CORPUSCULAR VOLUME 88 fL (79-100); MONO % 7 % (0-9); NEUT % 71 % (31-73); PLATELET COUNT 199 x10^3/uL (140-400); RED BLOOD COUNT 3.81 x10^6/uL (3.50-5.40); RED CELL DISTRIBUTION WIDTH 14.1 % (11.5-14.5); WHITE BLOOD COUNT 7.7 x10^3/uL (4.0-11.0)
[2017-01-02 01:30] VITALS: BP 180/76
[2017-01-02 01:34] LABS: ALBUMIN 3.7 g/dL (3.4-5.0); CALCIUM 8.7 mg/dL (8.5-10.1); CREATININE 0.9 mg/dL (0.6-1.0); DIRECT BILIRUBIN 0.2 mg/dL (0.0-0.2); GFR 60.4; MAGNESIUM 1.9 mg/dL (1.8-2.4); TOTAL BILIRUBIN 0.7 mg/dL (0.2-1.0); TOTAL PROTEIN 5.8 g/dL (6.4-8.2)
[2017-01-02 01:40] LABS: CKMB MASS 2.5 ng/mL (0.0-3.6)
[2017-01-02 01:41] LABS: POTASSIUM 2.5 mmol/L (3.5-5.1)
[2017-01-02] MEDS ORDERED: IOHEXOL 350 MG/ML 100 ML VIAL. ONE (01:48)
[2017-01-02] MEDS ORDERED: MORPHINE SULFATE 4 MG/ML DISP.SYRIN. IV ONE (02:30)
[2017-01-02] MEDS ORDERED: NITROGLYCERIN PREMIX 250 ML IV PRN (02:30)
[2017-01-02] MEDS ORDERED: ESMOLOL 2500MG/250ML PREMIX 250 ML IV PRN (02:30)
--- NOTE | 2017-01-02 02:42 | RAD ---
INDICATION: chest pain, back pain, widened mediastinum; Omni 350, 90ml COMPARISON: None. TECHNIQUE: Axial CT images obtained through the chest abdomen pelvis with intravenous contrast per angiogram protocol. Three-dimensional images processed per protocol. One or more of the following individualized dose reduction techniques were utilized for this examination: 1. Automated exposure control; 2. Adjustment of the mA and/or kV according to patient size; 3. Use of iterative reconstruction technique. FINDINGS: Chest: There is a thoracic aortic dissection identified originating at the distal aspect of the aortic arch and extending to the superior aspect of the abdominal aorta. 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 There is high density material infiltrating within the mediastinum adjacent to the aortic dissection with some of this high density material surrounding the thoracic aorta as well as the great vessels. There is some suspected thyroid nodules seen. Right brachiocephalic artery patent. Proximal common carotid arteries are patent. Proximal vertebral arteries are patent. Left subclavian artery patent. No evidence of pneumothorax. Mild dependent atelectasis. Trace left-sided pleural effusion. ABDOMEN: The patient's dissection extends to the superior aspect of the abdominal aorta. There is calcific atherosclerosis. No abdominal aortic aneurysm. 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 Gallstones. No peripancreatic edema. Spleen unremarkable. No hydronephrosis. Bladder largely obscured by artifact from arthroplasty. Colonic diverticulosis. Fat-containing umbilical hernia. No dilated loops of bowel to suggest obstruction. Degenerative changes left shoulder. Degenerative changes the spine with mild scoliotic curvature. IMPRESSION: Thoracic aortic dissection is identified originating at the distal aspect of the aortic arch and extending through the descending thoracic aorta. There is also high density material seen infiltrating within the mediastinum adjacent to the dissection as well as the great vessels of the neck. This is highly concerning for hemorrhage within the mediastinum which could be secondary to leakage/rupture. A portion of this hemorrhage could also be intramural within the wall of the thoracic aorta and great vessels given circumferential nature. Report called to the ordering physician at 2:19 AM on date of exam. Electronically signed by: Gene Alvarez MD (01/02/2017 2:39 AM) [id number]
[2017-01-02] MEDS ORDERED: ETOMIDATE 20 MG/10 ML VIAL. IV ONE (05:30)
[2017-01-02] MEDS ORDERED: ROCURONIUM 50 MG/5 ML VIAL. IV ONE (05:30)
--- NOTE | 2017-01-02 07:16 | EKG ---
[facility] [address] [place] [address] Test Date: 2017-01-01 Test Time: 23:52:46 Pat Name: ATILIO DAY Department: Room: Gender: F [employer]ic: : 1935 Requested By: THELMA BOONE Order Number: [id number] Reading MD: Nadia Lopes Measurements Intervals [place] Rate: 58 P: 0 VT: 162 QRS: -37 QRSD: 124 T: 93 QT: 466 QTc: 457 Interpretive Statements SINUS RHYTHM LEFT ANTERIOR FASCICULAR BLOCK LVH WITH REPOLARIZATION ABNORMALITY Electronically Signed On 01-05-2017 9:29:57 CDT by Nadia Lopes
--- NOTE | 2017-01-02 07:33 | RAD ---
Indication chest pain. A single view of the chest was obtained and is compared to an examination 11/15/2016. Heart size is normal. There is widening of the mediastinum suggesting adenopathy or perhaps pathology associated with the thoracic aorta. CT should be considered for additional evaluation.. Heart size is normal. There is no focal infiltrate. No pleural fluid or pneumothorax is seen. There are degenerative changes about the left shoulder. IMPRESSION: Widened mediastinum suggesting either adenopathy or pathology associated with the thoracic aorta.
== END 2017-01-02 09:45 | disposition expired ==
LOC: ER 23:48
DX: I71.8 Aortic aneurysm of unspecified site, ruptured (principal); I71.01 Dissection of thoracic aorta; K21.9 Gastro-esophageal reflux disease without esophagitis; I10 Essential (primary) hypertension; E78.00 Pure hypercholesterolemia, unspecified; I46.9 Cardiac arrest, cause unspecified; E78.5 Hyperlipidemia, unspecified; Z86.73 Personal history of transient ischemic attack (TIA), and cerebral infarction without residual deficits; Z90.49 Acquired absence of other specified parts of digestive tract; Z96.643 Presence of artificial hip joint, bilateral; Z96.653 Presence of artificial knee joint, bilateral; Z88.0 Allergy status to penicillin; Z88.8 Allergy status to other drugs, medicaments and biological substances
CPT/HCPCS: 36415; 71010; 71275; 74174; 80048; 80076; 82553; 83735; 83880; 84484; 85025; 93005; 96374; 96375; 99291; J0171; J2405; J3010; Q9967